=== PATIENT | female | born 1965 | race Caucasian/White ===

== ENCOUNTER 2020-08-25 08:12 | Outpatient (REF) | payer OTHER, SELFPAY ==
[2020-08-25 11:50] LABS: Alanine Aminotransferase 21 U/L (0-31); Anion Gap 15 (12-20); Aspartate Amino Transferase 20 U/L (5-31); Blood Urea Nitrogen 17 mg/dL (9-16); Calcium 9.5 mg/dL (8.4-10.2); Carbon Dioxide 28 mmol/L (22-29); Chloride 102 mmol/L (96-108); Cholesterol 225 mg/dL; Estimated Glomerular Filt Rate > 60; Glucose Fasting 110 mg/dL (60-99); HDL Cholesterol 56 mg/dL; LDL Cholesterol Calculated 139 mg/dl; Potassium 3.8 mmol/L (3.3-5.1); Sodium 141 mmol/L (135-145); Triglycerides 151 mg/dL
[2020-08-25 12:13] LABS: TSH reflex Free T4 0.02 uIU/mL (0.32-4.0); Vitamin D 25-OH Total 46.1 ng/mL (>30)
[2020-08-25 12:46] LABS: Free T4 (Free Thyroxine) 1.45 ng/dL (0.71-1.85)
== END 2020-08-25 08:13 | disposition home or self-care (01) ==
LOC: HO.HMGCLDS 08:12
PROVIDERS: PCP Internal Medicine; Visit Provider Internal Medicine
DX: I10 Essential (primary) hypertension (principal); N95.1 Menopausal and female climacteric states; Z83.49 Family history of other endocrine, nutritional and metabolic diseases
CPT/HCPCS: 36415; 80048; 80061; 82306; 84439; 84443; 84450; 84460

== ENCOUNTER 2021-08-18 09:33 | Outpatient (REF) | payer OTHER, SELFPAY ==
[2021-08-18 11:43] LABS: Anion Gap 14 (12-20); Carbon Dioxide 29 mmol/L (22-29); Chloride 101 mmol/L (96-108); Cholesterol 272 mg/dL; Glucose Fasting 108 mg/dL (60-99); HDL Cholesterol 53 mg/dL; LDL Cholesterol Calculated 183 mg/dl; Potassium 3.9 mmol/L (3.3-5.1); Sodium 140 mmol/L (135-145); Triglycerides 183 mg/dL
[2021-08-18 12:10] LABS: TSH reflex Free T4 2.72 uIU/mL (0.32-4.0); Vitamin D 25-OH Total 47.1 ng/mL (>30)
[2021-08-21 08:55] LABS: SARS COV2 IgG Positive (Negative)
== END 2021-08-18 09:34 | disposition home or self-care (01) ==
LOC: HO.HMGCLDS 09:33
PROVIDERS: PCP Internal Medicine; Visit Provider Internal Medicine
DX: Z00.01 Encounter for general adult medical examination with abnormal findings (principal); R73.01 Impaired fasting glucose; I10 Essential (primary) hypertension; E78.2 Mixed hyperlipidemia; N95.1 Menopausal and female climacteric states; Z86.16 Personal history of COVID-19
CPT/HCPCS: 36415; 80051; 80061; 82306; 82947; 84443; 86769

== ENCOUNTER 2022-08-21 08:32 | Outpatient (REF) | payer OTHER, SELFPAY ==
[2022-08-21 12:22] LABS: Estimated Average Glucose 120 mg/dL; Hemoglobin A1c % 5.8 %
[2022-08-21 12:55] LABS: Alanine Aminotransferase 21 U/L (0-31); Anion Gap 14 (12-20); Aspartate Amino Transferase 23 U/L (5-31); Blood Urea Nitrogen 19 mg/dL (9-16); Calcium 9.8 mg/dL (8.4-10.2); Carbon Dioxide 27 mmol/L (22-29); Chloride 105 mmol/L (96-108); Cholesterol 258 mg/dL; Estimated Glomerular Filt Rate 57; Glucose Fasting 116 mg/dL (60-99); HDL Cholesterol 50 mg/dL; LDL Cholesterol Calculated 179 mg/dl; Potassium 3.6 mmol/L (3.3-5.1); Sodium 142 mmol/L (135-145); Triglycerides 146 mg/dL
[2022-08-21 13:11] LABS: TSH reflex Free T4 3.69 uIU/mL (0.32-4.0); Vitamin D 25-OH Total 48.7 ng/mL (>30)
[2022-08-24 22:33] LABS: SARS COV2 IgG Positive (Negative)
== END 2022-08-21 08:33 | disposition home or self-care (01) ==
LOC: HO.HMGCLDS 08:32
PROVIDERS: Visit Provider Internal Medicine
DX: Z01.84 Encounter for antibody response examination (principal); E78.2 Mixed hyperlipidemia; I10 Essential (primary) hypertension; N95.1 Menopausal and female climacteric states; R73.01 Impaired fasting glucose; Z78.9 Other specified health status
CPT/HCPCS: 36415; 80048; 80061; 82306; 83036; 84443; 84450; 84460; 86769; 86787

== ENCOUNTER 2023-04-27 08:22 | Outpatient (REF) | payer OTHER, SELFPAY | END 2023-04-27 08:23 | disposition home or self-care (01) | LOC: HO.HMGCLDS 08:22 | PROVIDERS: PCP Internal Medicine; Visit Provider Internal Medicine | DX: R73.01 Impaired fasting glucose (principal); E78.2 Mixed hyperlipidemia; N95.1 Menopausal and female climacteric states; I10 Essential (primary) hypertension | CPT/HCPCS: 36415; 80048; 80061; 83036; 84450; 84460 ==

== ENCOUNTER 2023-05-14 13:50 | Outpatient (AMB) | payer OTHER, SELFPAY ==
[2023-05-14 14:33] VITALS: BP 136/88; PULSE 88; O2SAT 95; BMI 29.3
--- NOTE | 2023-05-14 14:33 | A.OFFPC_ITS ---
Vital Signs 05/14/23 14:33 Height 5 ft 1 in Weight 155 lb BMI 29.3 BP 136/88 Blood Pressure Location Lt brachial Position Sitting Pulse 88 Pulse Source Pulse Oximeter Pulse Oximetry (%) 95 Oxygen Delivery Method Room Air Intake Visit Reasons: Followup BP Intake Note: pt is here to follow up on her BP and lab results Allergies No Known Allergies Allergy (Verified 05/14/23 14:39) Medication List - Last Reconciled 05/14/23 by Kalee Chiang MD hydrochlorothiazide 25 mg PO DAILY losartan 50 mg PO DAILY multivitamin 1 tab PO DAILY Tobacco use date assessed: 05/14/23 Dental Screening Dental Screen Date: 05/14/23 Did you have a dental visit in the last 12 months?: Yes Was dental information given to patient?: Patient has dentist HPI Followup BP HPI Details 57-year-old lady here today for a rechec k on her blood pressure. Currently taking losartan 50 mg daily and hydrochlorothiazide 25 mg daily. Has been checking her blood pressure at home and has been running below 130/90 most of the time. Blood pressure today is lower than last check at 136/88.. She has been feeling well, with no complaints at present time. [facility] Medical History (Updated 05/14/23 @ 14:56 by Kalee Chiang MD) Tarlov cyst Personal history of COVID-19 Vaccination refused by patient Impaired fasting glucose Mixed dyslipidemia Urinary incontinence in female Postmenopausal syndrome Abnormal Pap smear of cervix Essential hypertension Surgical History Status post colonoscopy H/O colposcopy with cervical biopsy History of bladder surgery Family History Father No problems noted. Mother Diabetes mellitus Hypothyroidism Breast cancer Sister Hypertension Sister Hypertension Social History Housing: House Alcohol intake: current Patient Tobacco Use Status: Never used Tobacco e-Cigarette/Vaping Use: Never Used service: No Current occupational status: employed Cognitive needs: No Hearing needs: No Vision needs: Yes Questionnaire PHQ-9 Over the last 2 weeks, how often have you been bothered by any of the following problems? Depression Screening Interpretation: Negative Depression Screening Done: Yes Source: Developed by Drs. Eric Pires, Arina Mac, Andrea Noland and colleagues, with an educational carolyn from [employer]. Thrive Questionnaire Date Thrive assessed: 08/18/21 SUDHIR-7 AMB Questionnaire SUDHIR-7 Date SUDHIR - 7 assessed: 08/21/22 Source: Developed by Drs. Eric Pires, Arina Mac, Andrea Noland and colleagues, with an educational carolyn from [employer]. Review of Systems Const Denies headache(s) and Denies weakness Eyes Denies change in vision ENT Denies dizziness and Denies headache(s) Card Denies chest pain, Denies lightheadedness and Denies dyspnea Resp Denies chest congestion, Denies cough and Denies dyspnea GI Denies abdominal pain, Denies change in bowel habits and Denies heartburn Denies urinary frequency, Denies dysuria and Denies urinary urgency Musc Denies arthralgias, Denies joint swelling and Denies muscle weakness Skin/Breast Details: Small spot on her left upper chest which keeps getting irritated and bleeds Denies breast pain, Denies breast mass and Denies rash Neuro Denies dizziness, Denies headache(s) and Denies weakness Physical exam (Primary Care) Vital Signs: Last Vital Signs Pulse 88 05/14/23 14:33 BP 136/88 05/14/23 14:33 Pulse Ox 95 05/14/23 14:33 Oxygen Delivery Method Room Air 05/14/23 14:33 BMI result Body Mass Index 29.3 Tobacco/Smoking Status: Tobacco use Status Tobacco use date assessed 05/14/23 05/14/23 14:39 Patient Tobacco Use Status Never used Tobacco 05/14/23 14:33 e-Cigarette/Vaping Use Never Used 05/14/23 14:33 Depression Screening Interpretation: Negative Thrive Assessment: Date of Thrive Assessment Date Thrive assessed 08/18/21 05/14/23 14:33 Const Other: Alert oriented x3, no acute cardiorespiratory distress noted, ambulatory normal gait Orientation/consciousness: patient oriented x3 HENMT Head: Yes normocephalic Ears: hearing grossly normal bilaterally and external ears normal Face and sinus: Yes sinuses nontender and Yes face symmetric Mouth: Normal oral and palatal mucosa present, lip normal, tongue normal and moist mucous membranes Eyes General: appearance normal, both eyes and all related structures Neck Other: Supple, no lymphadenopathy, thyroid gland nonpalpable Chest Breast/axilla palpation: normal palpation of the breasts Resp Effort & Inspection: normal respiratory effort and able to speak in complete sentences Auscultation: clear to auscultation bilaterally Cardio Other: S1-S2 present regular rate and rhythm, no murmurs GI Palpation (GI): Soft to palpation, nontender and no guarding Back/Spine/Pelvis Back: No back tenderness Neuro General: patient oriented x3, gait normal, moves all extremities, Normal light touch and pain sensation, no focal motor deficits and CN's II-XI intact bilaterally Extrem General: Yes full ROM, Yes capillary refill normal, Yes no joint enlargement, Yes no clubbing, cyanosis or edema, Yes no pedal edema and Yes no calf tenderness Psych Appearance: grossly normal and well kempt Mental Status: mental status grossly normal Speech and movement: Normal speech and movement present Affect: normal affect Attitude: cooperative Thought process: Normal thought process present Thought content: Normal thought content present Assessment and Plan Assessment & Plan (1) Essential hypertension: Code(s): I10 - Essential (primary) hypertension Plan: Blood pressure goal is less than 130/80. Patient states her blood pressure has been averaging 135/85 when checked at home. Will continue with losartan 50 mg daily and hydrochlorothiazide 25 mg daily. Continue checking blood pressure at home and keeping a log of the readings. Reinforced importance of following a low sodium diet, getting regular exercise, and lowering stress levels. Will see her back for follow-up and physical exam next year August 2023 Medications: Refilled losartan 50 mg PO DAILY 90 tabs 1RF I10 - Essential (primary) hypertension Coding Level of Care Code Est Pt Level 3 (27564) Diagnoses Essential hypertension I10
== END 2023-05-14 14:54 | disposition home or self-care (01) ==
PROVIDERS: PCP Internal Medicine; Visit Provider Internal Medicine
DX: I10 Essential (primary) hypertension (principal)
CPT/HCPCS: 99213

== ENCOUNTER 2023-08-23 10:47 | Outpatient (AMB) | payer OTHER, SELFPAY ==
[2023-08-23 10:54] VITALS: BP 136/84; PULSE 70; O2SAT 96; BMI 28.9
--- NOTE | 2023-08-23 10:54 | MHC.PC.OV ---
Vital Signs 08/23/23 10:54 Height 5 ft 1 in Weight 153 lb BMI 28.9 BP 136/84 Blood Pressure Location Rt brachial Position Sitting Pulse 70 Pulse Source Pulse Oximeter Pulse Oximetry (%) 96 Oxygen Delivery Method Room Air Intake Visit Reasons: PE Intake Note: Pt is here today for her PE: Last mammogram 05/31/23, colonoscopy 11/28/14 Allergies No Known Allergies Allergy (Verified 08/23/23 11:48) Medication List - Last Reconciled 08/23/23 by Kalee Chiang MD hydrochlorothiazide 25 mg PO DAILY losartan 50 mg PO DAILY multivitamin 1 tab PO DAILY Tobacco use date assessed: 08/23/23 Dental Screening Dental Screen Date: 08/23/23 Did you have a dental visit in the last 12 months?: Yes Did you have a dental problem in the last 6 months where you did not have access to dental care?: No Was dental information given to patient?: Patient has dentist HPI PE HPI Details 58-year-old lady here today for her physical exam. She is up-to-date with her screening mammogram, goes to Dr Jose Craig for her routine Pap and pelvic exam currently up-to-date. She had a screening colonoscopy done at [place] in 2014, not due until 2024. Has hypertension currently stable and controlled on hydrochlorothiazide and losartan.. Has been feeling well with no complaints at present time. She has mixed dyslipidemia and prediabetes, has been compliant with her diet and tries to get regular exercise done. Does not want to get any vaccination [facility] Medical History Tarlov cyst Personal history of COVID-19 Vaccination refused by patient Impaired fasting glucose Mixed dyslipidemia Urinary incontinence in female Postmenopausal syndrome Abnormal Pap smear of cervix Essential hypertension Surgical History Status post colonoscopy H/O colposcopy with cervical biopsy History of bladder surgery Family History Father No problems noted. Mother Diabetes mellitus Hypothyroidism Breast cancer Sister Hypertension Sister Hypertension Social History Housing: House Alcohol intake: current Patient Tobacco Use Status: Never used Tobacco e-Cigarette/Vaping Use: Never Used service: No Current occupational status: employed Cognitive needs: No Hearing needs: No Vision needs: Yes Questionnaire PHQ-9 Over the last 2 weeks, how often have you been bothered by any of the following problems? 1. Little interest or pleasure in doing things: not at all 2. Feeling down, depressed, or hopeless: not at all 3. Trouble falling or staying asleep, or sleeping too much: not at all 4. Feeling tired or having little energy: not at all 5. Poor appetite or overeating: not at all 6. Feeling bad about yourself - or that you are a failure or have let yourself or your family down: not at all 7. Trouble concentrating on things, such as reading the newspaper or watching television: not at all 8. Moving or speaking so slowly that other people could have noticed. Or the opposite - being so fidgety or restless that you have been moving around a lot more than usual: not at all 9. Thoughts that you would be better off or of hurting yourself in some way: not at all Total score: 0 Depression Screening Interpretation: Negative Depression Screening Done: Yes 11531 - PHQ-9 Billing: Yes Source: Developed by Drs. Eric Pires, Arina Mac, Andrea Noland and colleagues, with an educational carolyn from [employer] Thrive Questionnaire Date Thrive assessed: 08/23/23 I am a: Patient What is your living situation today?: I have a steady place to live Within the past 12 months, did the food you bought not last and you didn't have the money to get more?: Never true Within the past 12 months, did you worry whether your food would run out before you got money to buy more?: Never true Do you have trouble paying for medicines?: No Do you have trouble getting transportation to medical appointments?: No Do you have trouble paying your heating and electricity bill?: No Do you have trouble taking care of your child, family member or friend?: No Do you have trouble with day-to-day activities such as bathing, preparing meals, shopping, managing finances, etc.?: No Are you currently unemployed and looking for a job?: No Are you interested in more education?: No THRIVE Score: 0 AUDIT C Alcohol Use Questionnaire (AUDIT-C) 1. How often do you have a drink containing alcohol?: Monthly or less 2. How many drinks containing alcohol do you have on a typical day when you are drinking?: 1 or 2 3. How often do you have six or more drinks on one occasion?: Never Total Score: 1 SUDHIR-7 AMB Questionnaire SUDHIR-7 Date SUDHIR - 7 assessed: 08/23/23 Feeling nervous, anxious, or on edge: 0 = Not at all Not being able to stop or control worryin = Not at all Worrying too much about different things: 0 = Not at all Trouble relaxin = Not at all Being so restless that it is hard to sit still: 0 = Not at all Becoming easily annoyed or irritable: 0 = Not at all Feeling afraid as if something awful might happen: 0 = Not at all Total SUDHIR-7 score (0-4 normal; 5-9 mild; 10-14 moderate; 15-21 severe): 0 Source: Developed by Drs. Eric Pires, Arina Mac, Andrea Noland and colleagues, with an educational carolyn from [employer] SUDHIR-7 Assessment Billing SUDHIR-7 Assessment Tool: SUDHIR-7 Assessment 37021 Review of Systems Const Denies headache(s) and Denies weakness Eyes Denies change in vision ENT Denies dizziness and Denies headache(s) Card Denies chest pain, Denies lightheadedness and Denies dyspnea Resp Denies chest congestion, Denies cough and Denies dyspnea GI Denies abdominal pain, Denies change in bowel habits and Denies heartburn Denies urinary frequency, Denies dysuria and Denies urinary urgency Musc Denies arthralgias, Denies joint swelling and Denies muscle weakness Skin/Breast Denies breast pain, Denies breast mass and Denies rash Neuro Denies dizziness, Denies headache(s) and Denies weakness Psych Reports no additional complaints Endo Reports no additional complaints Marlon/Lymph Reports no additional complaints Aller/Immun Reports no additional complaints Physical exam (Primary Care) Vital Signs: Last Vital Signs Pulse 70 08/23/23 10:54 BP 136/84 08/23/23 10:54 Pulse Ox 96 08/23/23 10:54 Oxygen Delivery Method Room Air 08/23/23 10:54 BMI result Body Mass Index 28.9 Tobacco/Smoking Status: Tobacco use Status Tobacco use date assessed 08/23/23 08/23/23 10:58 Patient Tobacco Use Status Never used Tobacco 08/23/23 10:58 e-Cigarette/Vaping Use Never Used 08/23/23 10:58 PHQ-9: PHQ-9 Score PHQ-9: Total score 0 08/23/23 11:48 Depression Screening Interpretation: Negative Thrive Assessment: Date of Thrive Assessment Date Thrive assessed 08/23/23 08/23/23 11:06 Const Other: Alert oriented x3, no acute cardiorespiratory distress noted, ambulatory normal gait Orientation/consciousness: patient oriented x3 HENMT Head: Yes normocephalic Ears: hearing grossly normal bilaterally and external ears normal Face and sinus: Yes sinuses nontender and Yes face symmetric Mouth: Normal oral and palatal mucosa present, tongue normal and moist mucous membranes Eyes General: appearance normal, both eyes and all related structures Neck Other: Supple, no lymphadenopathy, thyroid gland nonpalpable Chest Breast/axilla palpation: normal palpation of the breasts Resp Effort & Inspection: normal respiratory effort and able to speak in complete sentences Auscultation: clear to auscultation bilaterally Cardio Other: S1-S2 present regular rate and rhythm, no murmurs GI Palpation (GI): Soft to palpation, nontender and no guarding Back/Spine/Pelvis Back: No back tenderness Neuro General: patient oriented x3, gait normal, moves all extremities, Normal light touch and pain sensation, no focal motor deficits and CN's II-XI intact bilaterally Extrem General: Yes full ROM, Yes capillary refill normal, Yes no joint enlargement, Yes no clubbing, cyanosis or edema, Yes no pedal edema and Yes no calf tenderness Psych Appearance: grossly normal and well kempt Mental Status: mental status grossly normal Speech and movement: Normal speech and movement present Affect: normal affect Attitude: cooperative Thought process: Normal thought process present Thought content: Normal thought content present Assessment and Plan Assessment & Plan (1) Annual visit for general adult medical examination with abnormal findings: Code(s): Z00.01 - Encounter for general adult medical examination with abnormal findings Plan: Will check appropriate labs. Continue with regular dental visit every 6 months and regular eye exams, at least every 2 years. Take adequate calcium in diet and vitamin-D 3 at 2000 IU per cap once a day, in addition to weight-bearing exercises to help maintain good muscle tone and weight control. Instructed to do self-breast exam, and get yearly mammogram currently up-to-date. She sees OBGYN at [facility] for her routine Pap and pelvic exam, currently up-to-date. Declines getting any vaccines at this time. Colonoscopy is up-to-date, due again in 2024 (2) Impaired fasting glucose: Code(s): R73.01 - Impaired fasting glucose Plan: Your fasting blood sugars were elevated above 100 mg/dL. Impaired glucose metabolism O2 at risk for developing diabetes mellitus type 2, as well as heart attack and stroke later on. Lifestyle changes at just weight loss, healthy eating habits, and regular exercise are important, and can prevent the progression to diabetes (3) Mixed dyslipidemia: Code(s): E78.2 - Mixed hyperlipidemia Plan: fasting lipid profile ordered . Stressed importance of adherence to low-cholesterol diet and getting regular exercise, at least 30 minutes 3 to 4 times a week. Advised patient to make healthy food choices, eat more fruits, vegetables, whole grains, wild caught fish and low-fat dairy. Limit amount of meat and fried or fatty food products, as well as processed foods and fast foods. (4) Essential hypertension: Code(s): I10 - Essential (primary) hypertension Plan: Blood pressure at goal of less than 130/80. Continue with c losartan HCTZ. Reinforced importance of following a low sodium diet, getting regular exercise, and lowering stress levels. Orders: Orders Comprehensive [place]. Panel Fast Today E78.2 - Mixed hyperlipidemia, I10 - Essential (primary) hypertension, N95.1 - Menopausal and female climacteric states, R73.01 - Impaired fasting glucose Lipid Panel Today E78.2 - Mixed hyperlipidemia, I10 - Essential (primary) hypertension, N95.1 - Menopausal and female climacteric states, R73.01 - Impaired fasting glucose Vitamin D 25-OH Total Today E78.2 - Mixed hyperlipidemia, I10 - Essential (primary) hypertension, N95.1 - Menopausal and female climacteric states, R73.01 - Impaired fasting glucose Hemoglobin A1c Today E78.2 - Mixed hyperlipidemia, I10 - Essential (primary) hypertension, N95.1 - Menopausal and female climacteric states, R73.01 - Impaired fasting glucose Coding Level of Care Code Est Pt Prev Care 40-64y(02454) Diagnoses Annual visit for general adult medical examination with abnormal findings Z00.01 Impaired fasting glucose R73.01 Mixed dyslipidemia E78.2 Essential hypertension I10 Additional Codes SUDHIR-7 Assessment Billing - SUDHIR-7 Assessment Tool: SUDHIR-7 Assessment [id number] ([id number])
== END 2023-08-23 15:33 | disposition home or self-care (01) ==
PROVIDERS: Visit Provider Internal Medicine
DX: Z00.00 Encounter for general adult medical examination without abnormal findings (principal); R73.01 Impaired fasting glucose; E78.2 Mixed hyperlipidemia; I10 Essential (primary) hypertension
CPT/HCPCS: 99396

== ENCOUNTER 2023-09-12 07:38 | Outpatient (REF) | payer OTHER, SELFPAY ==
[2023-09-12 11:35] LABS: Estimated Average Glucose 117 mg/dL; Hemoglobin A1c % 5.7 % (<6.0)
[2023-09-12 11:58] LABS: Alanine Aminotransferase 17 U/L (0-31); Albumin Level 4.1 g/dL (3.5-5.0); Alkaline Phosphatase 62 U/L (39-117); Anion Gap 14 (12-20); Aspartate Amino Transferase 19 U/L (5-31); Bilirubin Total 0.3 mg/dL (0.0-1.0); Blood Urea Nitrogen 19 mg/dL (9-16); Calcium 9.2 mg/dL (8.4-10.2); Carbon Dioxide 26 mmol/L (22-29); Chloride 105 mmol/L (96-108); Cholesterol 240 mg/dL (<200); Estimated Glomerular Filt Rate > 60; Glucose Fasting 103 mg/dL (60-99); HDL Cholesterol 48 mg/dL (>40); LDL Cholesterol Calculated 167 mg/dL (<100); Sodium 141 mmol/L (135-145); Total Protein 7.1 g/dL (6.5-8.0); Triglycerides 129 mg/dL (<150)
== END 2023-09-12 07:39 | disposition home or self-care (01) ==
LOC: HO.HMGCLDS 07:38
PROVIDERS: PCP Internal Medicine; Visit Provider Internal Medicine
DX: R73.01 Impaired fasting glucose (principal); E78.2 Mixed hyperlipidemia; N95.1 Menopausal and female climacteric states; I10 Essential (primary) hypertension
CPT/HCPCS: 36415; 80053; 80061; 82306; 83036

== ENCOUNTER 2024-08-07 09:09 | Outpatient (REF) | payer OTHER, SELFPAY ==
[2024-08-07 13:04] LABS: MANUAL DIFF FLAG NO
[2024-08-07 13:10] LABS: Basophils Absolute Auto 0.1 X10*3/uL (0.0-0.2); Basophils Percent Auto 0.9 % (0-2); Eosinophils Absolute Auto 0.1 X10*3/uL (0.0-0.4); Eosinophils Percent Auto 2.5 % (0-4); Hematocrit 44.6 % (37.0-47.0); Hemoglobin 14.4 g/dl (12.0-16.0); Imm Gran Abs Auto 0.01 X10*3/uL (0.00-0.03); Imm Gran Pct Auto 0.2 % (0.0-0.4); Lymphocytes Absolute Auto 2.3 X10*3/uL (1.2-4.9); Lymphocytes Percent Auto 40.1 % (20-40); Mean Corpuscular HGB Conc 32.3 g/dl (31.0-35.0); Mean Corpuscular Hemoglobin 27.5 pg (27.0-33.0); Mean Corpuscular Volume 85.3 fL (80.0-98.0); Mean Platelet Volume 11.3 fL (9.4-12.3); Monocytes Absolute Auto 0.4 X10*3/uL (0.1-1.2); Monocytes Percent Auto 6.2 % (2-11); Neutrophils Absolute Auto 2.8 x10*3/uL (2.0-8.3); Neutrophils Percent Auto 50.1 % (45-73); Platelet Count 296 X10*3/uL (160-400); Red Blood Count 5.23 X10*6/uL (4.20-5.50); Red Cell Distribution Width 14.6 % (11.0-16.0); White Blood Count 5.7 X10*3/uL (4.8-10.8)
[2024-08-07 13:20] LABS: Estimated Average Glucose 123 mg/dL; Hemoglobin A1c % 5.9 % (<6.0); Total Hemoglobin (HGBA1C) 3756.0043 umol/L
[2024-08-07 13:26] LABS: Alanine Aminotransferase 28 U/L (0-31); Albumin Level 4.4 g/dL (3.5-5.0); Alkaline Phosphatase 64 U/L (39-117); Anion Gap 11 (12-20); Aspartate Amino Transferase 28 U/L (5-31); Bilirubin Total 0.4 mg/dL (0.0-1.0); Blood Urea Nitrogen 18 mg/dL (9-16); Calcium 9.4 mg/dL (8.4-10.2); Carbon Dioxide 28 mmol/L (22-29); Chloride 107 mmol/L (96-108); Cholesterol 258 mg/dL (<200); Estimated Glomerular Filt Rate 60; Glucose Fasting 100 mg/dL (60-99); HDL Cholesterol 56 mg/dL (>40); LDL Cholesterol Calculated 174 mg/dL (<100); Potassium 3.8 mmol/L (3.3-5.1); Sodium 142 mmol/L (135-145); Triglycerides 143 mg/dL (<150)
[2024-08-07 13:48] LABS: Vitamin D 25-OH Total 80.7 ng/mL (>30)
== END 2024-08-07 09:10 | disposition home or self-care (01) ==
LOC: HO.HMGCLDS 09:09
PROVIDERS: PCP Internal Medicine; Visit Provider Internal Medicine
DX: R42 Dizziness and giddiness (principal); I10 Essential (primary) hypertension; E78.2 Mixed hyperlipidemia; R73.01 Impaired fasting glucose; N95.1 Menopausal and female climacteric states
CPT/HCPCS: 36415; 80053; 80061; 82306; 83036; 85025; 96127

== ENCOUNTER 2024-08-07 09:09 | Outpatient (AMB) | payer OTHER, SELFPAY ==
[2024-08-07 09:32] VITALS: BP 124/90; PULSE 73; O2SAT 97; BMI 28.9
--- NOTE | 2024-08-07 09:32 | MHC.PC.OV ---
Vital Signs 08/07/24 09:32 Height 5 ft 1 in Weight 153 lb BMI 28.9 BP 124/90 H Blood Pressure Location Rt brachial Position Supine Pulse 73 Pulse Source Pulse Oximeter Pulse Oximetry (%) 97 Oxygen Delivery Method Room Air Comment orthostatic b/p sitting 112/82 and standing 130/80 Intake Visit Reasons: Check up Intake Note: Pt is here today c/o vertigo and feels like a fog: Orthostatic b/p supine 124/90, sitting 112/82, standing 130/80 Allergies No Known Allergies Allergy (Verified 08/11/24 01:04) Medication List - Last Reconciled 08/11/24 by Kalee Chiang MD hydrochlorothiazide 25 mg PO DAILY losartan 50 mg PO DAILY multivitamin 1 tab PO DAILY Tobacco use date assessed: 08/07/24 Dental Screening Dental Screen Date: 08/07/24 Did you have a dental visit in the last 12 months?: Yes Did you have a dental problem in the last 6 months where you did not have access to dental care?: No Was dental information given to patient?: Patient has dentist HPI Check up HPI Details - The patient is a 59-year-old female presenting with dizziness resembling a morning fog sensation, not linked to positional changes. - Dizziness began four to five weeks ago, unrelated to any activity , may occur while watching television and at work, with occasional episodes while driving. - Comorbid essential hypertension is under management with hydrochlorothiazide and losartan, with blood pressure today within normal limits, nor orthostasis seen - patient thinks it might also be eye strain as she has been in front of her computer screen for more than 8 hours a day this past few weeks at work - Previous consultation indicated no neurological deficits. - Historical lab results revealed slightly elevated cholesterol, with current concerns on weight and overall health management. [facility] Medical History Tarlov cyst Personal history of COVID-19 Vaccination refused by patient Impaired fasting glucose Mixed dyslipidemia Urinary incontinence in female Postmenopausal syndrome Abnormal Pap smear of cervix Essential hypertension Surgical History Status post colonoscopy H/O colposcopy with cervical biopsy History of bladder surgery Family History Father No problems noted. Mother Diabetes mellitus Hypothyroidism Breast cancer Sister Hypertension Sister Hypertension Social History Housing: House Alcohol intake: current Patient Tobacco Use Status: Never used Tobacco e-Cigarette/Vaping Use: Never Used service: No Current occupational status: employed Cognitive needs: No Hearing needs: No Vision needs: Yes Questionnaire PHQ-9 Over the last 2 weeks, how often have you been bothered by any of the following problems? 1. Little interest or pleasure in doing things: not at all 2. Feeling down, depressed, or hopeless: not at all 3. Trouble falling or staying asleep, or sleeping too much: not at all 4. Feeling tired or having little energy: not at all 5. Poor appetite or overeating: not at all 6. Feeling bad about yourself - or that you are a failure or have let yourself or your family down: not at all 7. Trouble concentrating on things, such as reading the newspaper or watching television: not at all 8. Moving or speaking so slowly that other people could have noticed. Or the opposite - being so fidgety or restless that you have been moving around a lot more than usual: not at all 9. Thoughts that you would be better off or of hurting yourself in some way: not at all Total score: 0 Depression Screening Interpretation: Negative Depression Screening Done: Yes 54801 - PHQ-9 Billing: Yes Source: Developed by Drs. Eric Pires, Arina Mac, Andrea Noland and colleagues, with an educational carolyn from [employer]. Thrive Questionnaire Date Thrive assessed: 08/07/24 I am a: Patient What is your living situation today?: I have a steady place to live Within the past 12 months, did the food you bought not last and you didn't have the money to get more?: Never true Within the past 12 months, did you worry whether your food would run out before you got money to buy more?: Never true Do you have trouble paying for medicines?: No Do you have trouble getting transportation to medical appointments?: No Do you have trouble paying your heating and electricity bill?: No Do you have trouble taking care of your child, family member or friend?: No Do you have trouble with day-to-day activities such as bathing, preparing meals, shopping, managing finances, etc.?: No Are you currently unemployed and looking for a job?: No Are you interested in more education?: No Please select the resources that you would like help with: None Currently or been in a relationship where the following occur: No concerns reported THRIVE Score: 0 AUDIT C Alcohol Use Questionnaire (AUDIT-C) 1. How often do you have a drink containing alcohol?: Monthly or less 2. How many drinks containing alcohol do you have on a typical day when you are drinking?: 1 or 2 3. How often do you have six or more drinks on one occasion?: Never Total Score: 1 SUDHIR-7 AMB Questionnaire SUDHIR-7 Date SUDHIR - 7 assessed: 08/07/24 Feeling nervous, anxious, or on edge: 0 = Not at all Not being able to stop or control worryin = Not at all Worrying too much about different things: 0 = Not at all Trouble relaxin = Not at all Being so restless that it is hard to sit still: 0 = Not at all Becoming easily annoyed or irritable: 0 = Not at all Feeling afraid as if something awful might happen: 0 = Not at all Total SUDHIR-7 score (0-4 normal; 5-9 mild; 10-14 moderate; 15-21 severe): 0 Source: Developed by Drs. Eric Pires, Arina Mac, Andrea Noland and colleagues, with an educational carolyn from [employer]. SUDHIR-7 Assessment Billing SUDHIR-7 Assessment Tool: SUDHIR-7 Assessment 11635 Review of Systems Const Denies headache(s) and Denies weakness Eyes Denies change in vision ENT Denies headache(s) Card Denies chest pain, Denies lightheadedness and Denies dyspnea Resp Denies chest congestion, Denies cough and Denies dyspnea GI Denies abdominal pain, Denies change in bowel habits and Denies heartburn Denies urinary frequency, Denies dysuria and Denies urinary urgency Musc Denies arthralgias, Denies joint swelling and Denies muscle weakness Neuro Denies headache(s) and Denies weakness Psych Reports no additional complaints Endo Reports no additional complaints Marlon/Lymph Reports no additional complaints Aller/Immun Reports no additional complaints Physical exam (Primary Care) Vital Signs: Last Vital Signs Pulse 73 08/07/24 09:32 BP 124/90 H 08/07/24 09:32 Pulse Ox 97 08/07/24 09:32 Oxygen Delivery Method Room Air 08/07/24 09:32 BMI result Body Mass Index 28.9 Tobacco/Smoking Status: Tobacco use Status Tobacco use date assessed 08/07/24 08/07/24 09:36 Patient Tobacco Use Status Never used Tobacco 08/07/24 09:36 e-Cigarette/Vaping Use Never Used 08/07/24 09:36 PHQ-9: PHQ-9 Score PHQ-9: Total score 0 08/07/24 10:21 Depression Screening Interpretation: Negative Thrive Assessment: Date of Thrive Assessment Date Thrive assessed 08/07/24 08/07/24 09:36 Currently or been in a relationship where the following occur: No concerns reported Const Other: Alert oriented x3, no acute cardiorespiratory distress noted, ambulatory normal gait Orientation/consciousness: patient oriented x3 HENVT Head: Yes normocephalic Ears: hearing grossly normal bilaterally and external ears normal Face and sinus: Yes sinuses nontender and Yes face symmetric Mouth: Normal oral and palatal mucosa present, tongue normal and moist mucous membranes Eyes General: appearance normal, both eyes and all related structures Neck Other: Supple, no lymphadenopathy, thyroid gland nonpalpable Resp Effort & Inspection: normal respiratory effort and able to speak in complete sentences Auscultation: clear to auscultation bilaterally Cardio Other: S1-S2 present regular rate and rhythm, no murmurs Neuro General: patient oriented x3, gait normal, moves all extremities, Normal light touch and pain sensation, no focal motor deficits and CN's II-XI intact bilaterally Extrem General: Yes full ROM, Yes capillary refill normal, Yes no joint enlargement, Yes no clubbing, cyanosis or edema, Yes no pedal edema and Yes no calf tenderness Psych Appearance: grossly normal and well kempt Mental Status: mental status grossly normal Speech and movement: Normal speech and movement present Affect: normal affect Attitude: cooperative Thought process: Normal thought process present Thought content: Normal thought content present Coding Level of Care Code Est Pt Level 4 (04084) Complex EM visit Add On G2211 Diagnoses Intermittent lightheadedness R42 Essential hypertension I10 Mixed dyslipidemia E78.2 Impaired fasting glucose R73.01 Additional Codes PHQ-9 - 30914 - PHQ-9 Billing: Yes ([id number]) SUDHIR-7 Assessment Billing - SUDHIR-7 Assessment Tool: SUDHIR-7 Assessment 94712 ([id number]) Assessment & Plan Assessment & Plan (1) Intermittent lightheadedness: Code(s): R42 - Dizziness and giddiness Category: Medical Plan: Ordered a comprehensive metabolic panel, CBC, vitamin-D level (2) Essential hypertension: Code(s): I10 - Essential (primary) hypertension Category: Medical Plan: Patient states that she has been having fluctuating blood pressure readings. Referred to Nephrology, per patient request, wants to see Dr. Chow. Continue with current medication. Reinforced importance of following a low sodium diet, getting regular exercise, and lowering stress levels. (3) Mixed dyslipidemia: Code(s): E78.2 - Mixed hyperlipidemia Category: Medical Plan: Fasting lipid panel ordered. Reinforced importance of following a low-cholesterol diet and getting regular exercise. (4) Impaired fasting glucose: Code(s): R73.01 - Impaired fasting glucose Category: Medical Plan: Your previous fasting blood sugars were elevated above 100 mg/dL. Hemoglobin A1c ordered Impaired glucose metabolism increases the risk for developing diabetes mellitus type 2, as well as heart attack and stroke later on. Lifestyle changes that promotes weight loss, healthy eating habits, and regular exercise are important, and can prevent the progression to diabetes Orders: Orders Comprehensive [place]. Panel Fast 08/07/24 E78.2 - Mixed hyperlipidemia, I10 - Essential (primary) hypertension, N95.1 - Menopausal and female climacteric states, R73.01 - Impaired fasting glucose Lipid Panel 08/07/24 E78.2 - Mixed hyperlipidemia, I10 - Essential (primary) hypertension, N95.1 - Menopausal and female climacteric states, R73.01 - Impaired fasting glucose Hemoglobin A1c 08/07/24 R73.01 - Impaired fasting glucose Complete Blood Count Auto Diff 08/07/24 E78.2 - Mixed hyperlipidemia, I10 - Essential (primary) hypertension, N95.1 - Menopausal and female climacteric states, R73.01 - Impaired fasting glucose Vitamin D 25-OH Total 08/07/24 E78.2 - Mixed hyperlipidemia, I10 - Essential (primary) hypertension, N95.1 - Menopausal and female climacteric states, R73.01 - Impaired fasting glucose Referrals Nephrology Referral I10 - Essential (primary) hypertension, R42 - Dizziness and giddiness
== END 2024-08-07 10:22 | disposition home or self-care (01) ==
PROVIDERS: PCP Internal Medicine; Visit Provider Internal Medicine
DX: R42 Dizziness and giddiness (principal); I10 Essential (primary) hypertension; E78.2 Mixed hyperlipidemia; R73.01 Impaired fasting glucose

== ENCOUNTER 2024-08-25 09:28 | Outpatient (AMB) | payer OTHER, SELFPAY ==
--- OUTSIDE RECORDS SUMMARY | 2024-08-25 09:54 | XMS_ITS | Clinical Summary ---
Author Organization [facility] ity Address [address] [place] [address] Care Team Providers Care Musculoskeletal Physician Name Role Phone Kalee Chiang MD Primary Care Provider Surgical History Surgery Date Site/Laterality Comments CERVICAL BIOPSY W/ LOOP ELECTRODE EXCISION 1985 PROCEDURE: HISTORICAL CONE BIOPSY; COMMENT: cervical precancer COLONOSCOPY 12/08/2014 PROCEDURE: HISTORICAL COLONOSCOPY; COMMENT: normal OTHER SURGICAL HISTORY 12/2016 PROCEDURE: MAMMOGRAM BLADDER SUSPENSION PROCEDURE: HISTORICAL BLADDER SUSPENSION; COMMENT: with mesh Medical History Medical History Date Comments 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 02/07/2007 DX:Malignant neoplasm of oth er specified sites of cervix; COMMENT: cone biopsy 1985, no recurrence Essential hypertension, benign 12/09/2007 D X:Essential hypertension, benign Hypercholesteremia 12/03/2008 DX:Hyperchole steremia Family History Medical History Relation Name Comments Breast cancer Aunt m 60s maternal Coronary artery disease Father hype rtension, 63 Breast cancer Mother 62sih Other: liver cancer Uncle maternal Relation Name Status Comments Aunt m 60s Alive Father Maternal Grandmother 62ish Mother 62sih Alive Uncle Social History Tobacco Use Types Packs/Day Years Used Date Smoking Tobacco: Never Smokeless Tobacco: Never Alcohol Use Standard Drinks/Week Comments Yes 0 (1 standard drink = 0.6 oz pur e alcohol) Sex and Gender Information Value Date Recorded Sex Assigned at Not on file Gender Identity Not on file Sexual Orientation Not on file Obstetrics History Plan of Treatment Upcoming Encounters Date Type Department Care Team ([facility] Contact Info) Description 10/02/2024 9:00 AM EDT Appointment Radiology Department [address] [phone] Health Maintenance Due Date Last Done Comments Cervical Cancer Screening: Pap Smear 1984 Zoster Vaccines (1 of 2) 2013 Cholesterol Screening (Lipid Panel) 07/01/2022 Colorectal Cancer Screening: Colonoscopy 07/01/2022 DTaP,Tdap,and Td Vaccines (2 - Td or Tdap) 07/01/2022 07/01/2012 Depression Screening 07/01/2022 HIV Screening 07/01/2022 Hepatitis C Screening 07/01/2022 Social Influencers of Health Screening 07/01/2022 Hypertension/CHF/CAD Annual BMP Blood Test 07/08/2022 COVID-19 Vaccine ( season) 2024 Influenza Vaccine (#1) 2024 Breast Cancer Screening 05/31/2024 05/31/20 23, 05/29/2022, 05/19/2021, Additional history exists RSV Immunization Patients 60+ Years Old (1 - 1-dose 75+ series) 2038 Hepatitis B Vaccines Completed 05/13/2003, 12/03/2002, 10/29/2002 HIB Vaccines Aged Out No longer eligi ble based on patient's age to complete this topic HPV Vaccines Aged Out No longer eligi ble based on patient's age to complete this topic Hepatitis A Vaccines Aged Out No long er eligible based on patient's age to complete this topic IPV Vaccines Aged Out No longer eligi ble based on patient's age to complete this topic MMR Vaccines Aged Out No longer eligi ble based on patient's age to complete this topic Meningococcal ACWY Vaccine Aged Out N o longer eligible based on patient's age to complete this topic Pneumococcal Vaccine: Pediatrics (0 to 5 Years) and At-Risk Patients (6 to 64 Years) Aged Out No longer eligible based on patient's age to complete this topic RSV Immunization Patients Under 20 months Aged Out No longer eligible based on patient's age to complete this topic Varicella Vaccines Aged Out No longer eligible based on patient's age to complete this topic Procedures Procedure Name Priority Date/Time Associated Diagnosis Comments SCREENING MAMMOGRAPHY BI 2-VIEW BREAST INC CAD Routine 05/31/2023 8:10 AM EST Encounter for screening mammogram for malignant neoplasm of breast from Last 3 Months or Most Recently Relevant to Health Maintenance Results * SCREENING MAMMOGRAPHY BI 2-VIEW BREAST INC CAD (05/31/2023 8:10 AM EST) Anatomical Region Laterality Modality Radiographic Leann ging 05/29/2022 8:11 AM EST Narrative 05/31/2023 12:05 PM EST This is a summary report. The complete report is available in the patient's medical record. If you cannot access the medical record, please contact the sending organization for a detailed fax or copy. Full field digital screening tomosynthesis mammography, reviewed with CAD and compared to previous. The breasts are composed of fatty and fibroglandular tissue. ??No suspicious mass, architectural distortion or suspicious calcifications are identified. IMPRESSION: : No mammographic evidence of malignancy. BIRADS 1-Negative; N. 5 year breast cancer risk assessment 2.8 % Lifetime breast cancer risk assessment 14.6 % Breast cancer risk category Moderate (15% - 20%) Procedure Note Carly Shelley MD - 08/28/2023 This is a summary report. The complete report is available in thepatient's medical record. If you cannot access the medical record, pleasecontact the sending organization for a detailed fax or copy. Full field digital screening tomosynthesis mammography, reviewed with CADand compared to previous. The breasts are composed of fatty andfibroglandular tissue. No suspicious mass, architectural distortion orsuspicious calcifications are identified. IMPRESSION: : No mammographic evidence of malignancy. BIRADS 1-Negative; N. 5 year breast cancer risk assessment 2.8 % Lifetime breast cancer risk assessment 14.6 % Breast cancer risk category Moderate (15% - 20%) Kalee Chiang MD IMG XR PROCEDURES from Last 3 Months or Most Recently Relevant to Health Maintenance Care Teams Musculoskeletal Physician Relationship Specialty Start Date End Date Kalee Chiang MD [address] [place] [address] PCP - General Internal Medicine 05/07/20
--- OUTSIDE RECORDS SUMMARY | 2024-08-25 09:54 | XMS_ITS | Clinical Summary ---
Author Organization [facility] [employer] Address [address] [place] [address] Care Team Providers Care Ccie Name Role Phone Kalee Chiang MD Primary Care Provider [phone] Allergies No known active allergies Medications hydroCHLOROthia zide (HYDRODIURIL) 25 MG tablet 4 Active losartan (COZAAR) 50 MG tablet 4 Active sodium chloride (OCEAN) 0.65 % nasal spray Instill 1 spray into each nostril as needed for congestion 15 mL 12 4 11/05/19 25 Active Social History Tobacco Use Types Packs/Day Years Used Date Smoking Tobacco: Never Smokeless Tobacco: Never Tobacco Cessation:Counseling Given: Not Answered Comments No Sex and Gender Information Value Date Recorded Sex Assigned at Not on file Legal Sex Female 9:51 AM EDT Gender Identity Not on file Sexual Orientation Not on file Last Filed Vital Signs Vital Sign Reading Time Taken Comments Blood Pressure 122/76 11/05/2023 8:16 AM EDT Pulse 71 11/05/2023 8:16 AM EDT Temperature 36.2 ??C (97.1 ??F) 11/05/2023 8:16 AM ED T Respiratory Rate 18 11/05/2023 8:16 AM EDT Oxygen Saturation 98% 11/05/2023 8:16 AM EDT Inhaled Oxygen Concentration - - Weight - - Height - - Body Mass Index - - Plan of Treatment Health Maintenance Due Date Last Done Comments Colorectal Cancer: COLONOSCO PY Screening every 10 yrs (or Modifier) 1963 Depression: Screening Annual ly using PHQ-2/9 in Adults 18 yrs or above (or HM Modifier)([facility]) 1981 Hepatitis C Virus Infection in Adolescents and Adults: Screening (or Modifier) ([facility]) 1981 DEANNA Screening: Once using ST OP-BANG Questionnaire for Adults with Conditions or high BMI([facility]) 1981 SDOH Screening Reminder: Mikki luis for all adults ([facility]) 1981 DTaP/Tdap/Td Vaccines ([facility]) (1 - Tdap) 1982 Cervical Cancer Screenin 1-65 yrs of age (or Modifier) 1984 Cervical Cancer Screening: P ap every 3 yrs pts age 21-65 1984 Cervical Cancer: Pap Screeni ng with Modifier timing ([facility]) 1984 Cervical Cancer: hrHPV alone or with cotesting Pap for Pts 30-65yrs screening every 5yrs ([facility]) 1984 Colorectal Cancer Screening 45 -75 Yrs (or HM Modifier) 2008 Colorectal Cancer: FLEXIBLE SIGMOIDOSCOPY Screening every 5 yrs 2008 Colorectal Cancer: Fecal Immunochemical Test (FIT) Annually [facility] 2008 Colorectal Cancer: High-sens itivity gFOBT Screening Annually [facility] 2008 Colorectal Cancer: Stool Col oguard Screening every 3 yrs 2008 Colorectal Cancer:CT Colonog blaze Screening every 5 yrs 2008 Lipid Screening: Every 5 yrs for Women aged 45+ (or HM Modifier) ([facility]) 2009 Breast Cancer: Screening Mikki luis age 50-74 yrs (or HM Modifier)([facility]) 2013 Zoster/Shingles Vaccine Seri es Screening: Adults aged 18+ yrs (or HM Modifiers)([facility]) (1 of 2) 2013 Flu Vaccination: Yearly for ages 18mos through 64 years (or Modifier)([facility]) 02/21/2024 COVID-19 Vaccine Screening: Initial Series and Booster Status ([facility]) ( - 2023-25 season) 2024 RSV Vaccines (1 - 1-dose 75+ series) 2038 Pneumococcal Vaccination Scr eening: Pts 0-19 & 19-64 yrs of age ([facility]) Aged Out No longer eligible b ased on patient's age to complete this topic Medical Devices Not on file Insurance [facility] [address] [place] [address] Care Teams Ccie Relationship Specialty Start Date End Date Kalee Chiang MD [address] [place] [address] [address] [place] [address] PCP - General Internal Medicine 11/05/23
[2024-08-25 10:16] VITALS: BP 130/82; PULSE 70; RESP 16; TEMP 36.6; O2SAT 97; BMI 29.5
--- NOTE | 2024-08-25 10:16 | A.OFFPC_ITS ---
Vital Signs 08/25/24 10:16 Height 5 ft 1 in Weight 156 lb BMI 29.5 BP 130/82 Blood Pressure Location Rt brachial Position Sitting Respiration 16 Pulse 70 Pulse Source Pulse Oximeter Temp 97.9 F Temp Source Oral Pulse Oximetry (%) 97 Oxygen Delivery Method Room Air Intake Visit Reasons: Annual PE Intake Note: Pt is here today for her PE: last mammogram , colonoscopy 12/08/14 Allergies No Known Allergies Allergy (Verified 08/25/24 10:51) Medication List - Last Reconciled 08/25/24 by Kalee Chiang MD hydrochlorothiazide 12.5 mg PO DAILY losartan 50 mg PO DAILY multivitamin 1 tab PO DAILY Tobacco use date assessed: 08/25/24 Dental Screening Dental Screen Date: 08/25/24 Did you have a dental visit in the last 12 months?: Yes Did you have a dental problem in the last 6 months where you did not have access to dental care?: No Was dental information given to patient?: Patient has dentist HPI Annual PE HPI Details 59-year-old lady here today for physical exam. She is overdue for her breast cancer screening, with last mammogram done at [facility] 05/31/2023 with negative findings. She is due this year to have her colon cancer screening, with last colonoscopy done in 2014. She has hypertension, with blood pressure stable and controlled on losartan and HCTZ. Recent fasting labs done a month ago showed results within normal limits except for borderline elevated fasting glucose at 100 mg/dL and elevated LDL cholesterol level. [facility] Medical History Tarlov cyst Personal history of COVID-19 Vaccination refused by patient Impaired fasting glucose Mixed dyslipidemia Urinary incontinence in female Postmenopausal syndrome Abnormal Pap smear of cervix Essential hypertension Surgical History Status post colonoscopy H/O colposcopy with cervical biopsy History of bladder surgery Family History Father No problems noted. Mother Diabetes mellitus Hypothyroidism Breast cancer Sister Hypertension Sister Hypertension Social History Housing: House Alcohol intake: current Patient Tobacco Use Status: Never used Tobacco e-Cigarette/Vaping Use: Never Used service: No Current occupational status: employed Cognitive needs: No Hearing needs: No Vision needs: Yes Questionnaire PHQ-9 Over the last 2 weeks, how often have you been bothered by any of the following problems? Depression Screening Interpretation: Negative Depression Screening Done: Yes Source: Developed by Drs. Eric Pires, Arina Mac, Andrea Noland and colleagues, with an educational carolyn from [employer]. Thrive Questionnaire Date Thrive assessed: 08/07/24 I am a: Patient What is your living situation today?: I have a steady place to live Within the past 12 months, did the food you bought not last and you didn't have the money to get more?: Never true Within the past 12 months, did you worry whether your food would run out before you got money to buy more?: Never true Do you have trouble paying for medicines?: No Do you have trouble getting transportation to medical appointments?: No Do you have trouble paying your heating and electricity bill?: No Do you have trouble taking care of your child, family member or friend?: No Do you have trouble with day-to-day activities such as bathing, preparing meals, shopping, managing finances, etc.?: No Are you currently unemployed and looking for a job?: No Are you interested in more education?: No Please select the resources that you would like help with: None Currently or been in a relationship where the following occur: No concerns reported THRIVE Score: 0 AUDIT C Alcohol Use Questionnaire (AUDIT-C) 1. How often do you have a drink containing alcohol?: Monthly or less 2. How many drinks containing alcohol do you have on a typical day when you are drinking?: 1 or 2 3. How often do you have six or more drinks on one occasion?: Never Total Score: 1 SUDHIR-7 AMB Questionnaire SUDHIR-7 Date SUDHIR - 7 assessed: 08/07/24 Source: Developed by Drs. Eric Pires, Arina Mac, Andrea Noland and colleagues, with an educational carolyn from [employer]. Review of Systems Const Denies headache(s) and Denies weakness Eyes Denies change in vision ENT Denies headache(s) Card Denies chest pain, Denies lightheadedness and Denies dyspnea Resp Denies chest congestion, Denies cough and Denies dyspnea GI Denies abdominal pain, Denies change in bowel habits and Denies heartburn Denies urinary frequency, Denies dysuria and Denies urinary urgency Musc Denies arthralgias, Denies joint swelling and Denies muscle weakness Neuro Denies headache(s) and Denies weakness Psych Reports no additional complaints Endo Reports no additional complaints Marlon/Lymph Reports no additional complaints Aller/Immun Reports no additional complaints Physical exam (Primary Care) Vital Signs: Last Vital Signs Temp 97.9 F 08/25/24 10:16 Pulse 70 08/25/24 10:16 Resp 16 08/25/24 10:16 BP 130/82 08/25/24 10:16 Pulse Ox 97 08/25/24 10:16 Oxygen Delivery Method Room Air 08/25/24 10:16 BMI result Body Mass Index 29.5 Tobacco/Smoking Status: Tobacco use Status Tobacco use date assessed 08/25/24 08/25/24 10:17 Patient Tobacco Use Status Never used Tobacco 08/25/24 10:17 e-Cigarette/Vaping Use Never Used 08/25/24 10:17 Depression Screening Interpretation: Negative Thrive Assessment: Date of Thrive Assessment Date Thrive assessed 08/07/24 08/25/24 10:17 Currently or been in a relationship where the following occur: No concerns reported Const Other: Alert oriented x3, no acute cardiorespiratory distress noted, ambulatory normal gait Orientation/consciousness: patient oriented x3 HENID Head: Yes normocephalic Ears: hearing grossly normal bilaterally and external ears normal Face and sinus: Yes sinuses nontender and Yes face symmetric Mouth: Normal oral and palatal mucosa present, tongue normal and moist mucous membranes Eyes General: appearance normal, both eyes and all related structures Neck Other: Supple, no lymphadenopathy, thyroid gland nonpalpable Chest Chest palpation & inspection: normal inspection of the chest Breast/axilla palpation: normal palpation of the breasts Resp Effort & Inspection: normal respiratory effort and able to speak in complete sentences Auscultation: clear to auscultation bilaterally Cardio Other: S1-S2 present regular rate and rhythm, no murmurs GI Palpation (GI): Soft to palpation, nontender, no guarding and no masses Auscultation: normal bowel sounds General: Yes no CVA tenderness Back/Spine/Pelvis Back: no CVA tenderness and No back tenderness Skin General skin exam: no rashes or lesions noted Neuro General: patient oriented x3, gait normal, moves all extremities, Normal light touch and pain sensation, no focal motor deficits and CN's II-XI intact bilaterally Extrem General: Yes full ROM, Yes capillary refill normal, Yes no joint enlargement, Yes no clubbing, cyanosis or edema, Yes no pedal edema and Yes no calf tenderness Psych Appearance: grossly normal and well kempt Mental Status: mental status grossly normal Speech and movement: Normal speech and movement present Affect: normal affect Attitude: cooperative Thought process: Normal thought process present Thought content: Normal thought content present Results Reviewed Results Reviewed: Name: Adina Lewis Age/Sex: 59/F : 1965 Unit#: [id number] Attend Dr: Kalee Chiang MD Re08/07/24 Status: DEP REF Location: [facility] Disch: SPEC : [id number] RIGOBERTO: 08/07/24 STATUS: COMP REQ : [id number] RECD: 08/07/[address]: Kalee Chiang MD COMP: 08/07/24 ENTERED: 08/07/24 [facility] DR: ORDERED: CBC Auto Diff Test Result Flag Reference WBC 5.7 4.8-10.8 X 10*3/uL RBC 5.23 4.20-5.50 X10*6/uL HGB 14.4 12.0-16.0 g/dl HCT 44.6 37.0-47.0 % MCV 85.3 80.0-98.0 fL MCH 27.5 27.0-33.0 pg MCHC 32.3 31.0-35.0 g/dl RDW 14.6 11.0-16.0 % PLT 296 160-400 X10*3/uL MPV 11.3 9.4-12.3 fL Neut Pct Auto 50.1 45-73 % ImGran Pct Auto 0.2 0.0-0.4 % Lymp Pct Auto 40.1 H 20-40 % [place] Pct Auto 6.2 2-11 % Eos Pct Auto 2.5 0-4 % Baso Pct Auto 0.9 0-2 % NRBC Pct Auto 0.0 0.0-0.2 /100WBC ANC Neut Abs # 2.8 2.0-8.3 x10*3/uL ImGran Abs Auto 0.01 0.00-0.03 X10*3/uL Lymph Abs Auto 2.3 1.2-4.9 X10*3/uL [place] Abs Auto 0.4 0.1-1.2 X10*3/uL Eos Abs Auto 0.1 0.0-0.4 X10*3/uL Baso Abs Auto 0.1 0.0-0.2 X10*3/uL NRBC Abs Auto 0.000 0.0-0.012 X10*3/uL Name: Adina Lewis Age/Sex: 59/F : 1965 Unit#: [id number] Attend Dr: Kalee Chiang MD Re08/07/24 Status: DEP REF Location: [facility] Disch: SPEC : [id number] RIGOBERTO: 08/07/24 STATUS: COMP REQ : [id number] RECD: 08/07/24-[address]: Kalee Chiang MD COMP: 08/07/24 ENTERED: 08/07/24-1029 [facility] DR: ORDERED: CMP Fast, Lipid Panel, Vitamin D 25-OH Test Result Flag Reference Sodium 142 135-145 mmol/L Potassium 3.8 3.3-5.1 mmol/L CL 107 96-108 mmol/L CO2 28 22-29 mmol/L Gap 11 L 12-20 BUN 18 H 9-16 mg/dL Creat 0.95 0.5-1.4 mg/dL eGFR 60 Chronic Kidney Disease: Estimated GFR < 60 mL/min/1.73m2 Severe Kidney Disease: Estimated GFR < 15 mL/min/1.73m2 FBS 100 H 60-99 mg/dL A fasting glucose from 100-125 mg/dl is considered impaired (pre-diabetes). CA 9.4 8.4-10.2 mg/dL Total Bili 0.4 0.0-1.0 mg/dL AST (GOT) 28 5-31 U/L ALT (GPT) 28 0-31 U/L Protein, Total 8.0 6.5-8.0 g/dL Alb 4.4 3.5-5.0 g/dL Triglyceride 143 <150 mg/dL Desirable Triglyceride: less than 150 mg/dL Borderline High Triglyceride 150-199 mg/dL High Triglyceride: 200-499 mg/dL Very High Triglyceride: greater than or equal to 5OO mg/dL Cholesterol 258 H <200 mg/dL Desirable Cholesterol: less than 200 mg/dL Borderline High Cholesterol: 200-239 mg/dL High Cholesterol: greater than 239 mg/dL LDL Calculated 174 H <100 mg/dL Desirable LDL: less than 100 mg/dL Near Optimal/Above Optimal LDL: 110-129 mg/dL Borderline High LDL: 130-159 mg/dL High LDL: 160-189 mg/dL Very High LDL: greater than or equal to 190 mg/dL HDL 56 >40 mg/dL Desirable HDL: greater than 40 mg/dL Note: This HDL assay may give artificially low results in patients with liver disease. Alk Phos 64 39-117 U/L Vit D 25-OH Tot 80.7 >30 ng/mL Health Based Reference Values* < 20 ng/mL Deficient 20-30 ng/mL Insufficient > 30 ng/mL Sufficient Laboratory Tests 08/07/24 10:32 Estimat Average Glucose 123 Hemoglobin A1c % 5.9 Coding Level of Care Code Est Pt Prev Care 40-64y(86247) Diagnoses Annual visit for general adult medical examination with abnormal findings Z00.01 Essential hypertension I10 Mixed dyslipidemia E78.2 Assessment & Plan Assessment & Plan (1) Annual visit for general adult medical examination with abnormal findings: Code(s): Z00.01 - Encounter for general adult medical examination with abnormal findings Plan: Will check appropriate labs. Recommended dental visit every 6 months and regular eye exams, at least every 2 years. Take adequate calcium in diet and vitamin-D 3 at 2000 IU per cap once a day, in addition to weight-bearing exercises to help maintain good muscle tone and weight control. Instructed to do self-breast exam, and recommended to get yearly mammogram. Bone density scan ordered. Patient declined getting any vaccines. Due for colon cancer s creening, Cologuard ordered (2) Essential hypertension: Code(s): I10 - Essential (primary) hypertension Category: Medical Plan: Blood pressure at goal of less than 130/80. Continue with current medication. Reinforced importance of following a low sodium diet, getting regular exercise, and lowering stress levels. (3) Mixed dyslipidemia: Code(s): E78.2 - Mixed hyperlipidemia Category: Medical Plan: Reviewed recent fasting lipid profile with patient with elevated LDL cholesterol. . Reinforced importance of adherence to low-cholesterol diet and regular exercise, at least 30 minutes 3 to 4 times a week. Advised patient to make healthy food choices, eat more fruits, vegetables, whole grains, wild caught fish and low-fat dairy. Limit amount of meat and fried or fatty food products, as well as processed foods and fast foods. Follow-up scheduled with repeat fasting lipid panel in 6 months. Orders: Orders XR DEXA axial skeleton 08/25/24 Z13.820 - Encounter for screening for osteoporosis, Z78.0 - Asymptomatic menopausal state Lipid Panel 01/20/25 E78.2 - Mixed hyperlipidemia, I10 - Essential (primary) hypertension Referrals Cologuard Test Z12.11 - Encounter for screening for malignant neoplasm of colon, Z12.12 - Encounter for screening for malignant neoplasm of rectum
== END 2024-08-25 11:19 | disposition home or self-care (01) ==
PROVIDERS: PCP Internal Medicine; Visit Provider Internal Medicine
DX: Z00.01 Encounter for general adult medical examination with abnormal findings (principal); I10 Essential (primary) hypertension; E78.2 Mixed hyperlipidemia

== ENCOUNTER → 2024-08-25 09:28 | Outpatient (BNVA) | payer OTHER, SELFPAY | PROVIDERS: PCP Internal Medicine; Visit Provider Internal Medicine ==

== ENCOUNTER 2024-09-09 13:55 | Outpatient (AMB) | payer OTHER, SELFPAY ==
--- NOTE | 2024-09-09 13:58 | HO.NEPHOV ---
Vital Signs 09/09/24 14:00 Height 5 ft 1 in Weight 157 lb 8 oz BMI 29.8 BP 130/70 Blood Pressure Location Lt brachial Position Sitting Pulse 112 H Pulse Source Pulse Oximeter Pulse Oximetry (%) 97 Oxygen Delivery Method Room Air Intake Visit Reasons: INP: Essential (primary) Htn/Conf Bailer Tenders Supervisor Required: No Accompanied by: Self / Same As Patient Allergies No Known Allergies Allergy (Verified 09/09/24 14:00) HPI Comments Details: I had the privilege of seeing this pleasant 59 year old lady for hypertension. Her blood pressure is better controlled on losartan and HCTZ. Recently fasting labs showed results within normal limits except for borderline elevated fasting glucose at 100 mg/dL and elevated LDL cholesterol level. She has been having feeling of vertigo and feels foggy in the head. Her orthostatic b/p supine 124/90, sitting 112/82, standing 130/80. She denies any weakness, ear symptoms, double vision, nausea, vomiting but occasionally dizzy. She is concerned whether she has any other ailments which is causing her current symptoms. [facility] Medical History Tarlov cyst Personal history of COVID-19 Vaccination refused by patient Impaired fasting glucose Mixed dyslipidemia Urinary incontinence in female Postmenopausal syndrome Abnormal Pap smear of cervix Essential hypertension Surgical History Status post colonoscopy H/O colposcopy with cervical biopsy History of bladder surgery Family History Father No problems noted. Mother Diabetes mellitus Hypothyroidism Breast cancer Sister Hypertension Sister Hypertension Social History Housing: House Alcohol intake: current Patient Tobacco Use Status: Never used Tobacco e-Cigarette/Vaping Use: Never Used service: No Current occupational status: employed Cognitive needs: No Hearing needs: No Vision needs: Yes Review of Systems Const All systems reviewed & are unremarkable except as noted in HPI and below Physical Exam Vital Signs: Last Vital Signs Pulse 112 H 09/09/24 14:00 BP 130/70 09/09/24 14:00 Pulse Ox 97 09/09/24 14:00 Oxygen Delivery Method Room Air 09/09/24 14:00 BMI result Body Mass Index 29.8 Const General: comfortable and no acute distress Orientation/consciousness: patient oriented x3 HEENT Head: Yes normocephalic Mouth: Normal oral and palatal mucosa present Eyes EOM: EOMs intact bilaterally Neck Neck: Yes supple Resp Auscultation: clear to auscultation bilaterally Cardio Jugular venous distension: no JVD Rate: regular rate GI Palpation (GI): Soft to palpation Auscultation: normal bowel sounds General: Yes no CVA tenderness Back/Spine/Pelvis Back: no CVA tenderness Skin General skin exam: no rashes or lesions noted Neuro General: patient oriented x3 and moves all extremities Extrem General: Yes no pedal edema Results Reviewed Nephrology Results: Hgb 14.4 g/dl (12.0-16.0) 08/07/24 WBC 5.7 X10*3/uL (4.8-10.8) 08/07/24 Plt Count 296 X10*3/uL (160-400) 08/07/24 Sodium 142 mmol/L (135-145) 08/07/24 Potassium 3.8 mmol/L (3.3-5.1) 08/07/24 Chloride 107 mmol/L (96-108) 08/07/24 Carbon Dioxide 28 mmol/L (22-29) 08/07/24 BUN 18 mg/dL (9-16) H 08/07/24 Creatinine 0.95 mg/dL (0.5-1.4) 08/07/24 Calcium 9.4 mg/dL (8.4-10.2) 08/07/24 Assessment & Plan Assessment & Plan (1) Essential hypertension: Code(s): I10 - Essential (primary) hypertension Category: Medical (2) Intermittent lightheadedness: Code(s): R42 - Dizziness and giddiness Category: Medical (3) Dizziness: Code(s): R42 - Dizziness and giddiness Category: Medical Plan Her BP is currently at goal. I have ordered 24 hour ABPM along with MR angio head and neck with contrast along with Holter and ECHO. I did not make any medication changes. We need to R/O cardiac etiology, posterior circulation issues or orthostasis. All these have been discussed in detail. Answered all questions. F/U given Orders: Orders AMB 24 HR B/P Monitor PLACEMENT 09/09/24 R42 - Dizziness and giddiness, I10 - Essential (primary) hypertension MR angio neck wo/w con 09/09/24 R42 - Dizziness and giddiness, I10 - Essential (primary) hypertension MR angio head wo/w con 09/09/24 R42 - Dizziness and giddiness, I10 - Essential (primary) hypertension ECG holter monitor 48 hour 09/09/24 R42 - Dizziness and giddiness, I10 - Essential (primary) hypertension CA echo transthoracic complete 09/09/24 R42 - Dizziness and giddiness, I10 - Essential (primary) hypertension Coding Level of Care Code New Pt Level 4 (54548) Diagnoses Essential hypertension I10 Intermittent lightheadedness R42 Dizziness R42
[2024-09-09 14:00] VITALS: BP 130/70; PULSE 112; O2SAT 97; BMI 29.8
--- OUTSIDE RECORDS SUMMARY | 2024-09-09 14:56 | XMS_ITS | Clinical Summary ---
Author Organization [facility] [employer] [facility] lin Address [address] [facility] [address] [place] [address] Care Team Providers Care Prepress Manager Name Role Phone Kalee Chiang MD Primary Care Provider [phone] Allergies No known active allergies Medications hydroCHLOROthia [...] Adults 18 yrs or above (or HM Modifier)([facility]) 1981 Hepatitis C Virus Infection in Adolescents and Adults: Screening (or Modifier) ([facility]) 1981 DEANNA Screening: Once using ST OP-BANG Questionnaire for Adults with Conditions or high BMI([facility]) 1981 SDOH Screening Reminder: Mikki smith for all adults ([facility]) 1981 DTaP/Tdap/Td Vaccines ([facility]) (1 - Tdap) 1982 Cervical Cancer Screenin 1-65 yrs of age (or Modifier) 1984 Cervical Cancer Screening: P ap every 3 yrs pts age 21-65 1984 Cervical Cancer: Pap Screeni ng with Modifier timing ([facility]) 1984 Cervical Cancer: hrHPV alone or with cotesting Pap for Pts 30-65yrs screening every 5yrs ([facility]) 1984 Colorectal Cancer Screening 45 -75 Yrs (or HM Modifier) 2008 Colorectal Cancer: FLEXIBLE SIGMOIDOSCOPY Screening every 5 yrs 2008 Colorectal Cancer: Fecal Immunochemical Test (FIT) Annually [facility] 2008 Colorectal Cancer: High-sens itivity gFOBT Screening Annually [facility] 2008 Colorectal Cancer: Stool Col oguard Screening every 3 yrs 2008 Colorectal Cancer:CT Colonog blaze Screening every 5 yrs 2008 Lipid Screening: Every 5 yrs for Women aged 45+ (or HM Modifier) ([facility]) 2009 Breast Cancer: Screening Mikki luis age 50-74 yrs (or HM Modifier)([facility]) 2013 Zoster/Shingles Vaccine Seri es Screening: Adults aged 18+ yrs (or HM Modifiers)([facility]) (1 of 2) 2013 Flu Vaccination: Yearly for ages 18mos through 64 years (or Modifier)([facility]) 02/21/2024 COVID-19 Vaccine Screening: Initial Series and Booster Status ([facility]) ( - 2023- season) 2024 RSV Vaccines (1 - 1-dose 75+ series) 2038 Pneumococcal Vaccination Scr eening: Pts 0-19 & 19-64 yrs of age ([facility]) Aged Out No longer eligible b ased on patient's age to complete this topic Medical Devices Not on file Insurance [facility] [address] [place] [address] Care Teams Prepress Manager Relationship Specialty Start Date End Date Kalee Chiang MD [address] [place] [address] [address] [place] [address] PCP - General Internal Medicine 11/05/23
--- OUTSIDE RECORDS SUMMARY | 2024-09-09 14:56 | XMS_ITS | Clinical Summary ---
Author Organization [facility] ity Address [address] [place] [address] Care Team Providers Care Financial Services Agent Name Role Phone Kalee Chiang MD Primary [...] drink = 0.6 oz pur e alcohol) Comments Unknown Sex and Gender Information Value Date Recorded Sex Assigned at Not on file Legal Sex Female 5:28 AM EST Gender Identity Not on file Sexual Orientation Not on file Obstetrics History Plan of Treatment Upcoming Encounters Date Type Department Care Team ([facility] Contact Info) Description 10/02/2024 9:00 AM EDT Appointment Radiology Department [address] [place] [address] Health Maintenance Due Date Last Done Comments Cervical Cancer Screening: Pap Smear 1984 Pneumococcal Vaccine: 50+ Years (1 of 1 - PCV) 2013 Zoster Vaccines (1 of 2) 2013 Cholesterol Screening (Lipid Panel) 07/01/2022 Colorectal Cancer Screening: Colonoscopy 07/01/2022 DTaP,Tdap,and Td Vaccines (2 - Td or Tdap) 07/01/2022 07/01/2012 Depression Screening 07/01/2022 HIV Screening 07/01/2022 Hepatitis C Screening 07/01/2022 Social Influencers of Health Screening 07/01/2022 Hypertension/CHF/CAD Annual BMP Blood Test 07/08/2022 COVID-19 Vaccine ( - season) 2024 Influenza Vaccine (#1) 2024 Breast [...] patient's age to complete this topic Meningococcal B Vacine Aged Out No lo nger eligible based on patient's age to complete [...] 20%) Kalee Chiang MD IMG XR PROCEDURES Final Res ult from Last 3 Months or Most Recently Relevant to Health Maintenance Care Teams Financial Services Agent Relationship Specialty Start Date End Date Kalee Chiang MD [address] [place] [address] PCP - General Internal Medicine 05/07/20
== END 2024-09-09 14:33 | disposition home or self-care (01) ==
PROVIDERS: PCP Internal Medicine; Referring Provider Internal Medicine; Visit Provider Internal Medicine Nephrology
DX: I10 Essential (primary) hypertension (principal); R42 Dizziness and giddiness
CPT/HCPCS: 99204

== ENCOUNTER → 2024-09-09 13:55 | Outpatient (BNVA) | payer OTHER, SELFPAY | PROVIDERS: PCP Internal Medicine; Referring Provider Internal Medicine; Visit Provider Internal Medicine Nephrology ==

== ENCOUNTER 2024-09-24 08:39 | Outpatient (REF) | payer OTHER, SELFPAY ==
--- NOTE | ~2024-09-24 | MM_ITS ---
EXAMINATION: DXA BONE DENSITY AXIAL HISTORY: Estrogen deficiency TECHNIQUE: [employer] Dual energy absorptiometry (DEXA) of the lumbar spine, total left hip, and femoral neck was performed. COMPARISON: There are no prior studies for comparison. FINDINGS: The bone mineral density of the lumbar spine is 1.342 with a T-score of 1.4, and a Z-score of 2.4. The bone mineral density of the left total hip is 1.053 with a T-score of 0.4, and a Z-score of 1.2. The bone mineral density of the left femoral neck is 1.086 with a T-score of 0.3, and a Z-score of 1.5. MM/XR DEXA axial skeleton IMPRESSION: Based on bone mineral density, and according to World Health Organization (WHO) criteria, the diagnosis is consistent with normal bone mineral density. All bone density values are in grams per centimeter squared (g/cm2). Statistically, 68% of repeat scans fall within 1 SD (+/- 0.010 g/cm2 for AP spine L1-L4) and 1 SD (+/- 0.012 g/cm2 for femur total) [employer] is a trademark of the [employer]'s [place] for Metabolic Bone Disease, a World Health Organization (WHO) Collaborating Center. Electronically signed by: Eric Bautista MD 09/26/2024 07:31 AM [facility]
--- OUTSIDE RECORDS SUMMARY | 2024-09-24 09:20 | XMS_ITS | Clinical Summary ---
Author Organization [facility] ity Address [address] [place] [address] Care Team Providers Care Motor Man Name Role Phone Kalee Chiang MD Primary [...] Upcoming Encounters Date Type Department Care Team ([facility] Contact Info) Description 10/02/2024 9:00 AM EDT Appointment Radiology Department [address] [place] [address] Health Maintenance Due Date Last Done Comments [...] Recently Relevant to Health Maintenance Care Teams Motor Man Relationship Specialty Start Date End Date Kalee Chiang MD [address] [place] [address] PCP - General Internal Medicine 05/07/20
--- OUTSIDE RECORDS SUMMARY | 2024-09-24 09:20 | XMS_ITS | Clinical Summary ---
Author Organization [facility] [employer] & [facility] lin Address [address] [place] [address] Care Team Providers Care Audit Tech Name Role Phone Kalee Chiang MD Primary Care Provider [phone] [phone] Allergies No known active allergies Medications hydroCHLOROthia [...] Adults 18 yrs or above (or HM Modifier)([facility]) 1981 Hepatitis C Virus Infection in Adolescents and Adults: Screening (or Modifier) ([facility]) 1981 DEANNA Screening: Once using ST OP-BANG Questionnaire for Adults with Conditions or high BMI([facility]) 1981 SDOH Screening Reminder: Mikki smith for all adults ([facility]) 1981 DTaP/Tdap/Td Vaccines ([facility]) (1 - Tdap) 1982 Cervical Cancer Screenin 1-65 yrs of age (or Modifier) 1984 Cervical Cancer Screening: P ap every 3 yrs pts age 21-65 1984 Cervical Cancer: Pap Screeni ng with Modifier timing ([facility]) 1984 Cervical Cancer: hrHPV alone or with cotesting Pap for Pts 30-65yrs screening every 5yrs ([facility]) 1984 Colorectal Cancer Screening 45 -75 Yrs (or HM Modifier) 2008 Colorectal Cancer: FLEXIBLE SIGMOIDOSCOPY Screening every 5 yrs 2008 Colorectal Cancer: Fecal Immunochemical Test (FIT) Annually [facility] 2008 Colorectal Cancer: High-sens itivity gFOBT Screening Annually [facility] 2008 Colorectal Cancer: Stool Col oguard Screening every 3 yrs 2008 Colorectal Cancer:CT Colonog blaze Screening every 5 yrs 2008 Lipid Screening: Every 5 yrs for Women aged 45+ (or HM Modifier) ([facility]) 2009 Breast Cancer: Screening Mikki luis age 50-74 yrs (or HM Modifier)([facility]) 2013 Zoster/Shingles Vaccine Seri es Screening: Adults aged 18+ yrs (or HM Modifiers)([facility]) (1 of 2) 2013 Flu Vaccination: Yearly for ages 18mos through 64 years (or Modifier)([facility]) 02/21/2024 COVID-19 Vaccine Screening: Initial Series and Booster Status ([facility]) ( - 2023- season) 2024 RSV Vaccines (1 - 1-dose 75+ series) 2038 Pneumococcal Vaccination Scr eening: Pts 0-19 & 19-64 yrs of age ([facility]) Aged Out No longer eligible b ased on patient's age to complete this topic Medical Devices Not on file Insurance [facility] [address] [place] [address] Care Teams Audit Tech Relationship Specialty Start Date End Date Kalee Chiang MD [address] [place] [address] [address] [place] [address] PCP - General Internal Medicine 11/05/23
== END 2024-09-24 08:40 | disposition home or self-care (01) ==
LOC: HO.MAMMO 08:39
PROVIDERS: PCP Internal Medicine; Visit Provider Internal Medicine
DX: Z13.820 Encounter for screening for osteoporosis (principal); Z78.0 Asymptomatic menopausal state
CPT/HCPCS: 77080

== ENCOUNTER → 2024-09-24 08:45 | Outpatient (BNV) | payer OTHER, SELFPAY | PROVIDERS: PCP Internal Medicine; Visit Provider Radiology Diagnostic Radiology | DX: E28.39 Other primary ovarian failure (principal) | CPT/HCPCS: 77080 ==

== ENCOUNTER → 2024-10-06 08:57 | Outpatient (BNVA) | payer OTHER, SELFPAY | PROVIDERS: PCP Internal Medicine; Visit Provider Internal Medicine Nephrology ==

== ENCOUNTER 2024-10-07 15:25 | Outpatient (AMB) | payer OTHER, SELFPAY ==
[2024-10-07 15:34] VITALS: BP 130/80; PULSE 85; O2SAT 97; BMI 29.9
--- NOTE | 2024-10-07 15:34 | HO.NEPHOV ---
Vital Signs 10/07/24 15:34 Height 5 ft 1 in Weight 158 lb BMI 29.9 BP 130/80 Blood Pressure Location Lt brachial Position Sitting Pulse 85 Pulse Source Pulse Oximeter Pulse Oximetry (%) 97 Oxygen Delivery Method Room Air Intake Visit Reasons: 4wk [id number] Accompanied by: Self / Same As Patient Allergies No Known Allergies Allergy (Verified 10/07/24 15:34) Do you need a note to return to daycare/school/sports/work: No HPI Comments Details: I had the privilege of seeing this pleasant 59 year old in follow up for hypertension. Her blood pressure is not well controlled on current dose of losartan . Recently fasting labs showed results within normal limits except for borderline elevated fasting glucose at 100 mg/dL and elevated LDL cholesterol level. She had been having feeling of vertigo and feels foggy in the head when her BP goes up . Her orthostatic b/p supine 124/90, sitting 112/82, standing 130/80. She denies any weakness, ear symptoms, double vision, nausea, vomiting but occasionally dizzy. She was concerned whether she has any other ailments which is causing her current symptoms. [facility] Medical History Tarlov cyst Personal history of COVID-19 Vaccination refused by patient Impaired fasting glucose Mixed dyslipidemia Urinary incontinence in female Postmenopausal syndrome Abnormal Pap smear of cervix Essential hypertension Surgical History Status post colonoscopy H/O colposcopy with cervical biopsy History of bladder surgery Family History Father No problems noted. Mother Diabetes mellitus Hypothyroidism Breast cancer Sister Hypertension Sister Hypertension Social History Housing: House Alcohol intake: current Patient Tobacco Use Status: Never used Tobacco e-Cigarette/Vaping Use: Never Used service: No Current occupational status: employed Cognitive needs: No Hearing needs: No Vision needs: Yes Review of Systems Const All systems reviewed & are unremarkable except as noted in HPI and below Physical Exam Vital Signs: Last Vital Signs Pulse 85 10/07/24 15:34 BP 130/80 10/07/24 15:34 Pulse Ox 97 10/07/24 15:34 Oxygen Delivery Method Room Air 10/07/24 15:34 BMI result Body Mass Index 29.9 Const General: comfortable and no acute distress Orientation/consciousness: patient oriented x3 HEENT Head: Yes normocephalic Mouth: Normal oral and palatal mucosa present Eyes EOM: EOMs intact bilaterally Neck Neck: Yes supple Resp Auscultation: clear to auscultation bilaterally Cardio Jugular venous distension: no JVD Rate: regular rate GI Palpation (GI): Soft to palpation Auscultation: normal bowel sounds General: Yes no CVA tenderness Back/Spine/Pelvis Back: no CVA tenderness Skin General skin exam: no rashes or lesions noted Neuro General: patient oriented x3 and moves all extremities Extrem General: Yes no pedal edema Results Reviewed Nephrology Results: Hgb 14.4 g/dl (12.0-16.0) 08/07/24 WBC 5.7 X10*3/uL (4.8-10.8) 08/07/24 Plt Count 296 X10*3/uL (160-400) 08/07/24 Sodium 142 mmol/L (135-145) 08/07/24 Potassium 3.8 mmol/L (3.3-5.1) 08/07/24 Chloride 107 mmol/L (96-108) 08/07/24 Carbon Dioxide 28 mmol/L (22-29) 08/07/24 BUN 18 mg/dL (9-16) H 08/07/24 Creatinine 0.95 mg/dL (0.5-1.4) 08/07/24 Calcium 9.4 mg/dL (8.4-10.2) 08/07/24 Assessment & Plan Assessment & Plan (1) Essential hypertension: Code(s): I10 - Essential (primary) hypertension Category: Medical Plan Her BP is currently at goal. Her 24 hour ABPM showed 24 hour BPM pd 135/ 84 mm of Hg , day time average of 137/86 mm of Hg and night time average of 128/78 mm of Hg. . MR angio head and neck with contrast along with Holter and ECHO are pending( shall hold for now) . I increased her losartan to 75 mm of Hg( She is going to take 25 mg AM & 50 mg PM). I did not make any medication changes. We need to R/O cardiac etiology, posterior circulation issues or orthostasis, if her symptoms recur. All these have been discussed in detail. Answered all questions. F/U given Orders: Orders Electrolytes 3 Months I10 - Essential (primary) hypertension Blood Urea Nitrogen 3 Months I10 - Essential (primary) hypertension Creatinine 3 Months I10 - Essential (primary) hypertension Medications: Changed From losartan 50 mg PO DAILY 90 tabs 1RF I10 - Essential (primary) hypertension To losartan 75 mg (1.5 x 50 mg) PO DAILY 90 days 135 tabs 3RF I10 - Essential (primary) hypertension Coding Level of Care Code Est Pt Level 4 (77749) Diagnoses Essential hypertension I10
--- OUTSIDE RECORDS SUMMARY | 2024-10-07 18:19 | XMS_ITS | Clinical Summary ---
Author Organization [facility] [employer] [facility] lin Address [address] [place] [address] Care Team Providers Care Postdoctoral Fellow Name Role Phone Kalee Chiang MD Primary Care Provider [phone] Allergies No known active allergies Medications hydroCHLOROthia [...] Adults 18 yrs or above (or HM Modifier)([facility]) 1981 Hepatitis C Virus Infection in Adolescents and Adults: Screening (or Modifier) ([facility]) 1981 DEANNA Screening: Once using ST OP-BANG Questionnaire for Adults with Conditions or high BMI([facility]) 1981 SDOH Screening Reminder: Mikki smith for all adults ([facility]) 1981 DTaP/Tdap/Td Vaccines ([facility]) (1 - Tdap) 1982 Cervical Cancer Screenin 1-65 yrs of age (or Modifier) 1984 Cervical Cancer Screening: P ap every 3 yrs pts age 21-65 1984 Cervical Cancer: Pap Screeni ng with Modifier timing ([facility]) 1984 Cervical Cancer: hrHPV alone or with cotesting Pap for Pts 30-65yrs screening every 5yrs ([facility]) 1984 Colorectal Cancer Screening 45 -75 Yrs (or HM Modifier) 2008 Colorectal Cancer: FLEXIBLE SIGMOIDOSCOPY Screening every 5 yrs 2008 Colorectal Cancer: Fecal Immunochemical Test (FIT) Annually [facility] 2008 Colorectal Cancer: High-sens itivity gFOBT Screening Annually [facility] 2008 Colorectal Cancer: Stool Col oguard Screening every 3 yrs 2008 Colorectal Cancer:CT Colonog blaze Screening every 5 yrs 2008 Lipid Screening: Every 5 yrs for Women aged 45+ (or HM Modifier) ([facility]) 2009 Breast Cancer: Screening Mikki luis age 50-74 yrs (or HM Modifier)([facility]) 2013 Zoster/Shingles Vaccine Seri es Screening: Adults aged 18+ yrs (or HM Modifiers)([facility]) (1 of 2) 2013 Flu Vaccination: Yearly for ages 18mos through 64 years (or Modifier)([facility]) 02/21/2024 COVID-19 Vaccine Screening: Initial Series and Booster Status ([facility]) ( - 2023- season) 2024 RSV Vaccines (1 - 1-dose 75+ series) 2038 Pneumococcal Vaccination Scr eening: Pts 0-19 & 19-64 yrs of age ([facility]) Aged Out No longer eligible b ased on patient's age to complete this topic Medical Devices Not on file Insurance [facility] [address] [place] [address] Care Teams Postdoctoral Fellow Relationship Specialty Start Date End Date Kalee Chiang MD [address] [place] [address] [address] [place] [address] PCP - General Internal Medicine 11/05/23
--- OUTSIDE RECORDS SUMMARY | 2024-10-07 18:19 | XMS_ITS | Encounter Summary ---
Author Organization [facility] Address [address] [place] [address] Care Team Providers Care Auto Repair Shop Manager Name Role Phone Kalee Chiang MD Primary Care Provider [phone] Reason for Visit * Imaging (Routine) - Closed Specialty Diagnoses / Procedures Referred By Kayleighac gautam Referred To Contact Radiology Diagnoses Encounter for screening mammogram for breast cancer Procedures MG Mammo Digital Screening w Tino bilat MG Mammo Digital Screening w Tino bilat Kalee Chiang MD [address] [place] [address] Phone: tel: fax: [facility] Referral ID Status Reason Start Date Expiration Date Visits Re quested Visits Authorized [id number] Closed 05/08/2024 05/08/2025 1 1 Encounter Details Date Type Department Care Team (Latest Contact Info) Description 10/02/2024 8:49 AM EDT - 10/02/2024 11:59 PM EDT Hospital Encounter Radiology Department - [address] [phone] Encounter for screening mammogram for breast cancer Discharge Disposition: Home or Self Care Social History Tobacco Use Types Packs/Day Years Used Date Smoking Tobacco: Never Smokeless Tobacco: Never Alcohol Use Standard Drinks/Week Comments Yes 0 (1 standard drink = 0.6 oz pur e alcohol) Comments No Sex and Gender Information Value Date Recorded Sex Assigned at Not on file Legal Sex Female 5:28 AM EST Gender Identity Not on file Sexual Orientation Not on file documented as of this encounter Discharge Disposition Disposition Code Departure Means Destination Home or Self Care documented in this encounter Plan of Treatment Not on file documented as of this encounter Procedures Procedure Name Priority Date/Time Associated Diagnosis Comments MG MAMMO DIGITAL SCREENING W TINO BILAT Routine 10/02/2024 9:01 AM EDT Encounter for screening mammogram for breast cancer documented in this encounter Results * MG Mammo Digital Screening w Tino bilat (10/02/2024 9:01 AM EDT) Anatomical Region Laterality Modality Breast Bilateral Mammography 10/02/2024 5:17 PM EDT Impressions 10/02/2024 5:40 PM EDT 1. No mammographic evidence of malignancy 2. Scattered fibroglandular tissue BI-RADS CATEGORY: 2 - BENIGN RECOMMENDATION: Screening bilateral mammogram is recommended in 1 year. Mammo Location: [facility], [address] [place] [address], [address], . -------- FINAL REPORT -------- Dictated By: Greg Nino Dictated Date: 10/02/2024 17:17 ET Assigned Physician: Greg Nino Reviewed and Electronically Signed By: Greg Nino Signed Date: 10/02/2024 17:40 ET Workstation ID: [id number] Transcribed By: Self Edit Transcribed Date: 10/02/2024 17:37 ET Narrative 10/02/2024 5:40 PM EDT A BILATERAL DIGITAL 3D SCREENING MAMMOGRAPHY HISTORY: Routine screening. ??Family history of breast cancer in mother, grandmother and aunt COMPARISON: Multiple priors dating back to 05/07/2020 Technique: Bilateral full field digital mammography (3D) was performed using standard CC and MLO projections CAD ??was used to evaluate this mammogram. FINDINGS: Right: No suspicious masses, groups of microcalcification or areas of architectural distortion identified. Stable typically benign parenchymal asymmetries. Left: No suspicious masses, groups of microcalcification or areas of architectural distortion identified. Stable typically benign parenchymal asymmetries. BREAST DENSITY: B - There are scattered areas of fibroglandular density. Procedure Note Greg Nino MD - 10/02/2024 A BILATERAL DIGITAL 3D SCREENING MAMMOGRAPHY HISTORY: Routine screening. Family history of breast cancer in mother,grandmother and aunt COMPARISON: Multiple priors dating back to 05/07/2020 Technique: Bilateral full field digital mammography (3D) was performedusing standard CC and MLO projections CAD was used to evaluate this mammogram. FINDINGS: Right: No suspicious masses, groups of microcalcification or areas ofarchitectural distortion identified. Stable typically benign parenchymalasymmetries. Left: No suspicious masses, groups of microcalcification or areas ofarchitectural distortion identified. Stable typically benign parenchymalasymmetries. BREAST DENSITY: B - There are scattered areas of fibroglandular density. IMPRESSION: 1. No mammographic evidence of malignancy 2. Scattered fibroglandular tissue BI-RADS CATEGORY: 2 - BENIGN RECOMMENDATION: Screening bilateral mammogram is recommended in 1 year. Mammo Location: [facility], [address] [place] [address], [address], . -------- FINAL REPORT -------- Dictated By: Greg Nino Dictated Date: 10/02/2024 17:17 ET Assigned Physician: Greg Nino Reviewed and Electronically Signed By: Greg Nino Signed Date: 10/02/2024 17:40 ET Workstation ID: [id number] Transcribed By: Self Edit Transcribed Date: 10/02/2024 17:37 ET us Kalee Chiang MD IMG BI PROCEDURES Final Res ult documented in this encounter Visit Diagnoses Diagnosis Encounter for screening mammogram for breast cancer documented in this encounter Care Teams Auto Repair Shop Manager Relationship Specialty Start Date End Date Kalee Chiang MD [address] [place] [address] PCP - General Internal Medicine 05/07/20 documented as of this encounter
--- OUTSIDE RECORDS SUMMARY | 2024-10-07 18:19 | XMS_ITS | Clinical Summary ---
Author Organization [address] Address [address] [place] [address] Phone Care Team Providers Care Sewer Tapper Name Role Phone Kalee Chiang MD Primary Care Provider Encounters Date Type Department Care Team Description 10/02/2024 8:49 AM EDT - 10/02/2024 11:59 PM EDT Hospital Encounter Radiology Department - [address] [phone] Encounter for screening mammogram for breast cancer Discharge Disposition: Home or Self Care from Last 3 Months Surgical History Surgery Date Site/Laterality Comments CERVICAL [...] disease Father hype rtension, 63 Breast cancer Maternal Grandmother 62ish Breast cancer Mother 62sih Other: liver cancer Uncle maternal Relation Name Status Comments Aunt m 60s Father Maternal Grandmother 62ish Mother 62sih Alive [...] Sexual Orientation Not on file Obstetrics History Para Term AB IAB SAB Ectopic Multiple Livin g Live Births 1 07 23 1 Date Outcome GA Total Labor Labor/2nd/3rd Weight Sex Type Anes PTL Nga A1 A5 Name Clin Term Plan of Treatment Health Maintenance Due Date [...] Influenza Vaccine (#1) 2024 Breast Cancer Screening 10/02/2025 10/03/19, 05/31/2023, 05/29/2022, Additional history exists RSV Immunization Patients 60+ [...] Encounter for screening mammogram for breast cancer from Last 3 Months Results * MG Mammo Digital Screening w Tino bilat (10/02/2024 9:01 AM EDT) Anatomical Region Laterality Modality Breast Bilateral Mammography 10/02/2024 5:17 PM EDT Impressions 10/02/2024 5:40 PM EDT 1. No mammographic evidence of malignancy 2. Scattered fibroglandular tissue BI-RADS CATEGORY: 2 - BENIGN RECOMMENDATION: Screening bilateral mammogram is recommended in 1 year. Mammo Location: [facility], [address] [place] [address], [facility], . -------- FINAL REPORT -------- Dictated By: Greg Nino Dictated Date: 10/02/2024 17:17 ET Assigned Physician: Greg Nino Reviewed and Electronically Signed By: Greg Nino Signed Date: 10/02/2024 17:40 ET Workstation ID: [id number] Transcribed By: Self Edit Transcribed Date: 10/02/2024 [...] is recommended in 1 year. Mammo Location: [facility], [address] [place] [address], [address], . -------- FINAL REPORT -------- Dictated By: Greg Nino Dictated Date: 10/02/2024 17:17 ET Assigned Physician: Greg Nino Reviewed and Electronically Signed By: Greg Nino Signed Date: 10/02/2024 17:40 ET Workstation ID: [id number] Transcribed By: Self Edit Transcribed Date: 10/02/2024 17:37 ET us Kalee Chiang MD IMG BI PROCEDURES Final Res ult from Last 3 Months Insurance [facility] Care Teams Sewer Tapper Relationship Specialty Start Date End Date Kalee Chiang MD [address] [place] [address] PCP - General Internal Medicine 05/07/20
== END 2024-10-07 15:58 | disposition home or self-care (01) ==
LOC: HO.HKAS 15:26
PROVIDERS: PCP Internal Medicine; Visit Provider Internal Medicine Nephrology
DX: I10 Essential (primary) hypertension (principal)
CPT/HCPCS: 99214

== ENCOUNTER → 2024-10-07 15:25 | Outpatient (BNVA) | payer OTHER, SELFPAY | PROVIDERS: PCP Internal Medicine; Visit Provider Internal Medicine Nephrology ==

== ENCOUNTER 2025-01-05 08:05 | Outpatient (REF) | payer OTHER, SELFPAY ==
--- OUTSIDE RECORDS SUMMARY | 2025-01-05 08:11 | XMS_ITS | Clinical Summary ---
Author Organization [address] Address [address] [place] [phone] Phone Care Team Providers Care Mathematics Improvement Teacher Name Role Phone Kalee Chiang MD Primary [...] m 60s maternal Coronary artery disease Father harper rtension, 63 Breast cancer Maternal Grandmother 62ish [...] Ectopic Multiple Livin g Live Births 1 Date Outcome GA Total Labor Labor/2nd/3rd [...] COVID-19 Vaccine ( season) 2024 Influenza Vaccine (Season Ended) 2025 Breast Cancer Screening 10/02/2025 10/03/19, 05/31/2023, 05/29/2022, Additional history exists RSV Immunization Adult Patients (1 - 1-dose 75+ series) 2038 Hepatitis [...] age to complete this topic Meningococcal B Vaccine Aged Out No l onger eligible based on patient's age to complete [...] for breast cancer from Last 3 Months or Most Recently Relevant to Health Maintenance Results * MG Mammo Digital Screening w Tino bilat (10/02/2024 9:01 AM EDT) Anatomical Region Laterality Modality Breast Bilateral Mammography 10/02/2024 5:17 PM EDT Impressions 10/02/2024 5:40 PM EDT 1. No mammographic evidence of malignancy 2. Scattered fibroglandular tissue BI-RADS CATEGORY: 2 - BENIGN RECOMMENDATION: Screening bilateral mammogram is recommended in 1 year. Mammo Location: [facility], [address] [place] [address], [address], . -------- FINAL REPORT -------- Dictated By: Greg Nino Dictated Date: 10/02/2024 17:17 ET Assigned Physician: Greg Nino Reviewed and Electronically Signed By: Greg Nino Signed Date: 10/02/2024 17:40 ET Workstation ID: [id number] Transcribed By: Self Edit Transcribed Date: 10/02/2024 [...] is recommended in 1 year. Mammo Location: [facility], [address] [place] [address], [address], . -------- FINAL REPORT -------- Dictated By: Greg Nino Dictated Date: 10/02/2024 17:17 ET Assigned Physician: Greg Nino Reviewed and Electronically Signed By: Greg Nino Signed Date: 10/02/2024 17:40 ET Workstation ID: [id number] Transcribed By: Self Edit Transcribed Date: 10/02/2024 17:37 ET Kalee Chiang MD IMG BI PROCEDURES Final Res ult from Last 3 Months or Most Recently Relevant to Health Maintenance Insurance [facility] [address] [place] [address] Care Teams Mathematics Improvement Teacher Relationship Specialty Start Date End Date Kalee Chiang MD [address] [place] [address] PCP - General Internal Medicine 05/07/20
[2025-01-05 10:46] LABS: Anion Gap 11 (12-20); Blood Urea Nitrogen 17 mg/dL (9-16); Carbon Dioxide 28 mmol/L (22-29); Chloride 107 mmol/L (96-108); Estimated Glomerular Filt Rate > 60; Potassium 4.2 mmol/L (3.3-5.1); Sodium 142 mmol/L (135-145)
== END 2025-01-05 08:06 | disposition home or self-care (01) ==
LOC: HO.HMGCLDS 08:05
PROVIDERS: PCP Internal Medicine; Visit Provider Internal Medicine Nephrology
DX: I10 Essential (primary) hypertension (principal)
CPT/HCPCS: 36415; 80051; 82565; 84520

== ENCOUNTER 2025-01-07 16:01 | Outpatient (AMB) | payer OTHER, SELFPAY ==
--- NOTE | 2025-01-07 16:06 | HO.NEPHOV_ITS ---
Vital Signs 01/07/25 16:08 Height 5 ft 1 in Weight 157 lb BMI 29.7 BP 118/70 Blood Pressure Location Rt brachial Position Sitting Pulse 99 Pulse Source Pulse Oximeter Pulse Oximetry (%) 95 Oxygen Delivery Method Room Air Intake Visit Reasons: 3 mo follow up-Conf Stablehand Required: No Accompanied by: Self / Same As Patient Allergies No Known Allergies Allergy (Verified 01/07/25 16:08) HPI Comments Details: I had the privilege of seeing this pleasant 59 year old in follow up for hypertension. Recently fasting labs showed results within normal limits except for borderline elevated fasting glucose at 100 mg/dL and elevated LDL cholesterol level. She had been having feeling of vertigo and feels foggy in the head when her BP goes up . Her orthostatic b/p supine 124/90, sitting 112/82, standing 130/80. She denies any weakness, ear symptoms, double vision, nausea, vomiting. [facility] Medical History Tarlov cyst Personal history of COVID-19 Vaccination refused by patient Impaired fasting glucose Mixed dyslipidemia Urinary incontinence in female Postmenopausal syndrome Abnormal Pap smear of cervix Essential hypertension Surgical History Status post colonoscopy H/O colposcopy with cervical biopsy History of bladder surgery Family History Father No problems noted. Mother Diabetes mellitus Hypothyroidism Breast cancer Sister Hypertension Sister Hypertension Social History Housing: House Alcohol intake: current Patient Tobacco Use Status: Never used Tobacco e-Cigarette/Vaping Use: Never Used service: No Current occupational status: employed Cognitive needs: No Hearing needs: No Vision needs: Yes Review of Systems Const All systems reviewed & are unremarkable except as noted in HPI and below Physical Exam Const General: comfortable and no acute distress Orientation/consciousness: patient oriented x3 HEENT Head: Yes normocephalic Mouth: Normal oral and palatal mucosa present Eyes EOM: EOMs intact bilaterally Neck Neck: Yes supple Resp Auscultation: clear to auscultation bilaterally Cardio Jugular venous distension: no JVD Rate: regular rate GI Palpation (GI): Soft to palpation Auscultation: normal bowel sounds General: Yes no CVA tenderness Back/Spine/Pelvis Back: no CVA tenderness Skin General skin exam: no rashes or lesions noted Neuro General: patient oriented x3 and moves all extremities Extrem General: Yes no pedal edema Results Reviewed Nephrology Results: Sodium, (135-145) 142 mmol/L 01/05/25 Potassium, (3.3-5.1) 4.2 mmol/L 01/05/25 Chloride, (96-108) 107 mmol/L 01/05/25 Carbon Dioxide, (22-29) 28 mmol/L 01/05/25 BUN, (9-16) 17 mg/dL H 01/05/25 Creatinine, (0.5-1.4) 0.94 mg/dL 01/05/25 Assessment & Plan Assessment & Plan (1) Essential hypertension: Code(s): I10 - Essential (primary) hypertension Category: Medical Plan Her BP is currently at goal. Her 24 hour ABPM showed 24 hour BPM pd 135/ 84 mm of Hg , day time average of 137/86 mm of Hg and night time average of 128/78 mm of Hg. . MR angio head and neck with contrast along with Holter and ECHO are pending( shall hold for now) . She can continue losartan 75 mm of Hg( She is going to take 25 mg AM & 50 mg PM). I did not make any medication changes. We need to R/O cardiac etiology, posterior circulation issues or orthostasis, if her symptoms recur. All these have been discussed in detail. Answered all questions. F/U given Orders: Orders Blood Urea Nitrogen 7 Months I10 - Essential (primary) hypertension Electrolytes 7 Months I10 - Essential (primary) hypertension Creatinine 7 Months I10 - Essential (primary) hypertension Protein Creatinine Ratio, Ur 7 Months I10 - Essential (primary) hypertension Medications: Refilled losartan 75 mg (1.5 x 50 mg) PO DAILY 135 tabs 3RF 90 days I10 - Essential (primary) hypertension Coding Level of Care Code Est Pt Level 4 (16965) Diagnoses Essential hypertension I10
[2025-01-07 16:08] VITALS: BP 118/70; PULSE 99; O2SAT 95; BMI 29.7
--- OUTSIDE RECORDS SUMMARY | 2025-01-07 18:01 | XMS_ITS | Clinical Summary ---
Author Organization [address] Address [address] [place] [phone] Phone Care Team Providers Care Properties Supervisor Name Role Phone Kalee Chiang MD Primary [...] is recommended in 1 year. Mammo Location: [facility], [address] [place] [address], [address], . -------- FINAL REPORT -------- Dictated By: Greg Nino Dictated Date: 10/02/2024 17:17 ET Assigned Physician: Greg Nino Reviewed and Electronically Signed By: Greg Nino Signed Date: 10/02/2024 17:40 ET Workstation ID: [id number] Transcribed By: Self Edit Transcribed Date: 10/02/2024 17:37 ET Narrative 10/02/2024 5:40 PM EDT A BILATERAL DIGITAL 3D SCREENING MAMMOGRAPHY HISTORY: Routine screening. Family history of breast cancer in mother, grandmother and aunt COMPARISON: Multiple priors dating back to 05/07/2020 Technique: Bilateral full field digital mammography (3D) was performed using standard CC and MLO projections CAD was [...] is recommended in 1 year. Mammo Location: [facility], [address] [place] [address], [address], . -------- FINAL REPORT -------- Dictated By: Greg Nino Dictated Date: 10/02/2024 17:17 ET Assigned Physician: Greg Nino Reviewed and Electronically Signed By: Greg Nino Signed Date: 10/02/2024 17:40 ET Workstation ID: [id number] Transcribed By: Self Edit Transcribed Date: 10/02/2024 17:37 ET Kalee Chiang MD IMG BI PROCEDURES Final Res ult from Last 3 Months or Most Recently Relevant to Health Maintenance Insurance [facility] Care Teams Properties Supervisor Relationship Specialty Start Date End Date Kalee Chiang MD [address] [place] [facility] [place] [address] PCP - General Internal Medicine 05/07/20
== END 2025-01-07 16:24 | disposition home or self-care (01) ==
LOC: HO.HKA 16:02
PROVIDERS: PCP Internal Medicine; Visit Provider Internal Medicine Nephrology
DX: I10 Essential (primary) hypertension (principal)
CPT/HCPCS: 99214

== ENCOUNTER 2025-02-17 09:06 | Outpatient (AMB) | payer OTHER, SELFPAY ==
[2025-02-17 09:24] VITALS: BP 130/80; PULSE 71; O2SAT 95; BMI 29.5
--- NOTE | 2025-02-17 09:24 | A.OFFPC_ITS ---
Vital Signs 02/17/25 09:24 Height 5 ft 1 in Weight 156 lb BMI 29.5 BP 130/80 Blood Pressure Location Lt brachial Position Sitting Pulse 71 Pulse Source Pulse Oximeter Pulse Oximetry (%) 95 Intake Visit Reasons: 6 months f/up Team Leader Required: No Allergies No Known Allergies Allergy (Verified 02/17/25 09:51) Medication List - Last Reconciled 02/17/25 by Kalee Chiang MD losartan 75 mg (1.5 x 50 mg) PO DAILY 90 days magnesium glycinate 200 mg PO DAILY multivitamin 1 tab PO DAILY Tobacco use date assessed: 08/25/24 Dental Screening Dental Screen Date: 08/25/24 HPI 6 months f/up HPI Details 59-year-old lady with history of hyperte nsion currently being followed by Nephrology, here today for follow-up on her lipids. She has been compliant with a healthy diet, tries to follow a Mediterranean diet, cooks most of her meals, seldom eats out, does not eat fast food but has love her bread and pasta. Patient makes her own bread. She exercises regularly. Previous lipid levels showed elevated LDL cholesterol, which runs strongly in both sides of her family. Patient however states that she will never take a statin. Blood pressure is stable and controlled on losartan , dose recently increased by Nephrology to 75 mg daily PFSH Medical History Tarlov cyst Personal history of COVID-19 Vaccination refused by patient Impaired fasting glucose Mixed dyslipidemia Urinary incontinence in female Postmenopausal syndrome Abnormal Pap smear of cervix Essential hypertension Surgical History Status post colonoscopy H/O colposcopy with cervical biopsy History of bladder surgery Family History Father No problems noted. Mother Diabetes mellitus Hypothyroidism Breast cancer Sister Hypertension Sister Hypertension Social History Housing: House Alcohol intake: current Patient Tobacco Use Status: Never used Tobacco e-Cigarette/Vaping Use: Never Used service: No Current occupational status: employed Cognitive needs: No Hearing needs: No Vision needs: Yes Questionnaire PHQ-9 Over the last 2 weeks, how often have you been bothered by any of the following problems? 1. Little interest or pleasure in doing things: not at all 2. Feeling down, depressed, or hopeless: not at all 3. Trouble falling or staying asleep, or sleeping too much: not at all 4. Feeling tired or having little energy: not at all 5. Poor appetite or overeating: not at all 6. Feeling bad about yourself - or that you are a failure or have let yourself or your family down: not at all 7. Trouble concentrating on things, such as reading the newspaper or watching television: not at all 8. Moving or speaking so slowly that other people could have noticed. Or the opposite - being so fidgety or restless that you have been moving around a lot more than usual: not at all 9. Thoughts that you would be better off or of hurting yourself in some way: not at all Total score: 0 Depression Screening Interpretation: Negative Depression Screening Done: Yes 65841 - PHQ-9 Billing: Yes Source: Developed by Drs. Eric Pires, Arina Mac, Andrea Noland and colleagues, with an educational carolyn from [employer]. Thrive Questionnaire Date Thrive assessed: 02/17/25 I am a: Patient What is your living situation today?: I have a steady place to live Within the past 12 months, did the food you bought not last and you didn't have the money to get more?: Never true Within the past 12 months, did you worry whether your food would run out before you got money to buy more?: Never true Do you have trouble paying for medicines?: No Do you have trouble getting transportation to medical appointments?: No Do you have trouble paying your heating and electricity bill?: No Do you have trouble taking care of your child, family member or friend?: No Do you have trouble with day-to-day activities such as bathing, preparing meals, shopping, managing finances, etc.?: No Are you currently unemployed and looking for a job?: No Are you interested in more education?: No Please select the resources that you would like help with: None Currently or been in a relationship where the following occur: No concerns reported THRIVE Score: 0 AUDIT C Alcohol Use Questionnaire (AUDIT-C) 1. How often do you have a drink containing alcohol?: Monthly or less 2. How many drinks containing alcohol do you have on a typical day when you are drinking?: 1 or 2 3. How often do you have six or more drinks on one occasion?: Never Total Score: 1 Score Reviewed/Action Taken: Yes SUDHIR-7 AMB Questionnaire SUDHIR-7 Date SUDHIR - 7 assessed: 02/17/25 Feeling nervous, anxious, or on edge: 0 = Not at all Not being able to stop or control worryin = Not at all Worrying too much about different things: 0 = Not at all Trouble relaxin = Not at all Being so restless that it is hard to sit still: 0 = Not at all Becoming easily annoyed or irritable: 0 = Not at all Feeling afraid as if something awful might happen: 0 = Not at all Total SUDHIR-7 score (0-4 normal; 5-9 mild; 10-14 moderate; 15-21 severe): 0 Source: Developed by Drs. Eric Pires, Arina Mac, Andrea Noland and colleagues, with an educational carolyn from [employer]. SUDHIR-7 Assessment Billing SUDHIR-7 Assessment Tool: SUDHIR-7 Assessment 61078 Review of Systems Const Denies headache(s) and Denies weakness Eyes Denies change in vision and Reports requires corrective lenses ENT Denies headache(s) Card Denies chest pain, Denies lightheadedness and Denies dyspnea Resp Denies chest congestion, Denies cough and Denies dyspnea GI Denies abdominal pain, Denies change in bowel habits and Denies heartburn Reports no additional complaints Musc Reports no additional complaints Skin/Breast Details: Goes to [place] for her screening mammogram and sees OBGYN there, up-to-date with her cervical cancer screening Neuro Denies headache(s) and Denies weakness Psych Reports no additional complaints Endo Reports no additional complaints Marlon/Lymph Reports no additional complaints Aller/Immun Reports no additional complaints Physical exam (Primary Care) Vital Signs: Last Vital Signs Pulse 71 02/17/25 09:24 BP 130/80 02/17/25 09:24 Pulse Ox 95 02/17/25 09:24 BMI result Body Mass Index 29.5 Tobacco/Smoking Status: Tobacco use Status Tobacco use date assessed 08/25/24 02/17/25 09:26 Patient Tobacco Use Status Never used Tobacco 02/17/25 09:26 e-Cigarette/Vaping Use Never Used 02/17/25 09:26 PHQ-9: PHQ-9 Score PHQ-9: Total score 0 02/17/25 09:36 Depression Screening Interpretation: Negative Thrive Assessment: Date of Thrive Assessment Date Thrive assessed 02/17/25 02/17/25 09:27 Currently or been in a relationship where the following occur: No concerns reported Const Other: Alert oriented x3, no acute cardiorespiratory distress noted, ambulatory normal gait Orientation/consciousness: patient oriented x3 HENMT Head: Yes normocephalic Ears: external ears normal Face and sinus: Yes face symmetric Mouth: moist mucous membranes Eyes General: appearance normal, both eyes and all related structures Neck Other: Supple, no lymphadenopathy, thyroid gland nonpalpable Resp Effort & Inspection: normal respiratory effort and able to speak in complete sentences Auscultation: clear to auscultation bilaterally Cardio Other: S1-S2 present regular rate and rhythm, no murmurs Neuro General: patient oriented x3, gait normal, moves all extremities, Normal light touch and pain sensation, no focal motor deficits and CN's II-XI intact bilaterally Extrem General: Yes full ROM, Yes no joint enlargement and Yes no pedal edema Psych Appearance: grossly normal and well kempt Mental Status: mental status grossly normal Speech and movement: Normal speech and movement present Affect: normal affect Attitude: cooperative Results Reviewed Results Reviewed: Name: Adina Lewis Age/Sex: 59/F : 1965 Unit#: [id number] Attend Dr: Moses Chow MD Re01/05/25 Status: DEP [facility] Disch: SPEC : [id number] RIGOBERTO: 01/05/25 STATUS: COMP REQ : [id number] RECD: 01/05/[address]: Moses Chow MD COMP: 01/05/25 ENTERED: 01/05/[address]: Kalee Chiang MD ORDERED: Lytes, BUN, Creat Test Result Flag Reference Sodium 142 135-145 mmol/L Potassium 4.2 3.3-5.1 mmol/L CL 107 96-108 mmol/L CO2 28 22-29 mmol/L Gap 11 L 12-20 BUN 17 H 9-16 mg/dL Creat 0.94 0.5-1.4 mg/dL eGFR > 60 Chronic Kidney Disease: Estimated GFR < 60 mL/min/1.73m2 Coding Level of Care Code Est Pt Level 4 (99145) Diagnoses Mixed dyslipidemia E78.2 Essential hypertension I10 Additional Codes SUDHIR-7 Assessment Billing - SUDHIR-7 Assessment Tool: SUDHIR-7 Assessment 85661 ([id number]) PHQ-9 - 47528 - PHQ-9 Billing: Yes ([id number]) Assessment & Plan Assessment & Plan (1) Mixed dyslipidemia: Code(s): E78.2 - Mixed hyperlipidemia Category: Medical Plan: Likely familial, continue with adherence to healthy eating habits and cut back on a lot of simple carbs, continue with regular exercise at least 150 minutes of moderate intensity exercise in a week. Fasting lipid panel again ordered patient however does not want to start any statins, if elevated LDL cholesterol still seen, advised to try using red yeast rice which is available [id number] (2) Essential hypertension: Code(s): I10 - Essential (primary) hypertension Category: Medical Plan: Blood pressure at goal of less than 130/80. Currently on losartan 75 mg daily, followed by Nephrology. Reinforced importance of following a low sodium diet, getting regular exercise, and lowering stress levels.
--- OUTSIDE RECORDS SUMMARY | 2025-02-17 09:32 | XMS_ITS | Clinical Summary ---
Author Organization [facility] [employer] Address [address] [facility] [place] [place] [address] Care Team Providers Care Supervisor Partial Denture Department Name Role Phone Kalee Chiang MD Primary Care Provider [phone] Allergies No known active allergies Medications hydroCHLOROthiazid e (HYDRODIURIL) 25 MG tablet 10/25/2023 Active losartan (COZAAR) 50 MG tablet 10/22/2023 Active Social History Tobacco Use Types Packs/Day [...] 71 11/05/2023 8:16 AM EDT Temperature 36.2 C (97.1 F) 11/05/2023 8:16 AM EDT Respiratory Rate 18 11/05/2023 8:16 AM EDT [...] Adults 18 yrs or above (or HM Modifier)([facility]) 1981 Hepatitis C Virus Infection in Adolescents and Adults: Screening (or Modifier) ([facility]) 1981 DEANNA Screening: Once using ST OP-BANG Questionnaire for Adults with Conditions or high BMI([facility]) 1981 SDOH Screening Reminder: Mikki smith for all adults ([facility]) 1981 Tobacco Smoking Cessation: i n Adults excluding Women: Behavioral and Pharmacotherapy Interventions ([facility]) 1981 DTaP/Tdap/Td Vaccines ([facility]) (1 - Tdap) 1982 Cervical Cancer Screenin 1-65 yrs of age (or Modifier) 1984 Cervical Cancer Screening: P ap every 3 yrs pts age 21-65 1984 Cervical Cancer: Pap Screeni ng with Modifier timing ([facility]) 1984 Cervical Cancer: hrHPV alone or with cotesting Pap for Pts 30-65yrs screening every 5yrs ([facility]) 1984 Colorectal Cancer Screening 45 -75 Yrs (or HM Modifier ) 2008 Colorectal Cancer: FLEXIBLE SIGMOIDOSCOPY Screening every 5 yrs 2008 Colorectal Cancer: Fecal Imm unochemical Test (FIT) Annually [facility] 2008 Colorectal Cancer: High-sens itivity gFOBT Screening Annually [facility] 2008 Colorectal Cancer: Stool Col oguard Screening every 3 yrs 2008 Colorectal Cancer:CT Colonography Screening every 5 yr s 2008 Breast Cancer: Screening Mikki luis age 50-74 yrs (or HM Modifier)([facility]) 2013 Pneumococcal Vaccination Scr eening: Patients 50+ yrs of age ([facility]) (1 of 1 - PCV) 2013 Zoster/Shingles Vaccine Seri es Screening: Adults aged 18+ yrs (or HM Modifiers)([facility]) (1 of 2) 2013 COVID-19 Vaccine Screening: Initial Series and Booster Status ([facility]) ( - 2023-25 season) 2024 Flu Vaccination: Yearly for ages 18mos through 64 years (or Modifier)([facility]) 02/20/2025 RSV Vaccines (1 - 1-dose 75+ series) 2038 [employer] Not on file Insurance [facility] [place] [place] [id number] Care Teams Supervisor Partial Denture Department Relationship Specialty Start Date End Date Kalee Chiang MD PCP - General Internal Medicine 11/05/23
--- OUTSIDE RECORDS SUMMARY | 2025-02-17 09:32 | XMS_ITS | Clinical Summary ---
Author Organization [address] Address [address] [place] [phone] Phone Care Team Providers Care Diamond Die Maker Name Role Phone Kalee Chiang MD Primary [...] (2 - Td or Tdap) 07/01/2022 07/01/2012 HIV Screening 07/01/2022 Hepatitis C Screening 07/01/2022 Social Influencers of Health Screening 07/01/2022 Hypertension/CHF/CAD Annual BMP Blood Test 07/08/2022 COVID-19 Vaccine ( - season) 2024 Depression Screening 07/23/2024 Influenza Vaccine (#1) 2025 Breast Cancer Screening 10/02/2025 10/03/19, 05/31/2023, [...] is recommended in 1 year. Mammo Location: [facility], [address] [place] [address], [phone], . -------- FINAL REPORT -------- Dictated By: Greg Nino Dictated Date: 10/02/2024 17:17 ET Assigned Physician: Greg Nino Reviewed and Electronically Signed By: Greg Nino Signed Date: 10/02/2024 17:40 ET Workstation ID: [id number] Transcribed By: Self Edit Transcribed Date: 10/02/2024 [...] is recommended in 1 year. Mammo Location: [facility], [address] [place] [address], [address], . -------- FINAL REPORT -------- Dictated By: Greg Nino Dictated Date: 10/02/2024 17:17 ET Assigned Physician: Gerg Nino Reviewed and Electronically Signed By: Greg Nino Signed Date: 10/02/2024 17:40 ET Workstation ID: [id number] Transcribed By: Self Edit Transcribed Date: 10/02/2024 17:37 ET Kalee Chiang MD IMG BI PROCEDURES Final Res ult from Last 3 Months or Most Recently Relevant to Health Maintenance Insurance [facility] Care Teams Diamond Die Maker Relationship Specialty Start Date End Date Kalee Chiang MD [address] [place] [address] PCP - General Internal Medicine 05/07/20
== END 2025-02-17 11:13 | disposition home or self-care (01) ==
LOC: HO.HMCC 09:07
PROVIDERS: PCP Internal Medicine; Visit Provider Internal Medicine
DX: E78.2 Mixed hyperlipidemia (principal); I10 Essential (primary) hypertension

== ENCOUNTER → 2025-02-17 09:06 | Outpatient (BNVA) | payer OTHER, SELFPAY | PROVIDERS: PCP Internal Medicine; Visit Provider Internal Medicine | DX: E78.2 Mixed hyperlipidemia (principal); I10 Essential (primary) hypertension; Z79.899 Other long term (current) drug therapy; Z13.31 Encounter for screening for depression; Z13.39 Encounter for screening examination for other mental health and behavioral disorders | CPT/HCPCS: 96127 ==